=== PATIENT | female | born 1975 | race Caucasian/White ===

== ENCOUNTER 2017-10-29 15:05 | Emergency (ER) | payer SELFPAY ==
--- OUTSIDE RECORDS SUMMARY | 2017-10-29 15:09 | XMS REPORT | Continuity of Care Document ---
:1975 Author Organization [facility] Care Team Providers Name Role Phone MD Mely, Gerson Unavailable Unavailable Insurance Providers Payer name Policy type / Coverage Policy ID Covered republican ID Policy Olivia type [place] Encounters Encounter Performer Location Date Lab Report Gerson Boone MD [facility] Nov 15, 2013 Allergies, Adverse Reactions, Alerts Type Substance Reaction Status Drug allergy PENICILLIN rash Active Problems Problem Effective Dates Problem Status MIGRAINE HEADACHE Active MIGRAINE - UNSPECIFIED WITHOUT MENTION OF INTRACTABLE Sep 26, 2013 Active ROUTINE GENERAL MEDICAL EXAMINATION AT A [facility] Sep 26, 2013 Active FACILITY ELEVATED BLOOD PRESSURE READING WITHOUT DIAGNOSIS OF Sep 26, 2013 Active HYPERTENSION MENORRHAGIA Sep 26, 2013 Inactive WELL WOMAN EXAM Oct 31, 2013 Active GALACTORRHEA Oct 31, 2013 Active MENORRHAGIA Oct 31, 2013 Active Procedures Date Description Comments Sep 26, 2013 smoking status Never smoker August 04, 2012 vaginal Pap smear results Normal Oct 31, 2013 vaginal Pap smear results normal Oct 31, 2013 smoking status Never smoker Medications Medication Instructions Start Date Status TRINESSA (28) 0.18/0.215/0.25 MG-35 Inactive MCG TABS TOPAMAX 50 MG TABS twice a day Inactive BACTRIM DS 800-160 MG TABS 1 tab q12h with food. Sep 26, 2013 Active BACTROBAN 2 % OINT Apply to affected area Sep 26, 2013 Active (finger) BID MEDROXYPROGESTERONE ACETATE 10 MG 1 tablet daily Oct 31, 2013 Active TABS FLAGYL 500 MG TABS one by mouth BID x 7 days Nov 09, 2013 Active Vital Signs Date Description Test Result Sep 26, 2013 height E&M HEIGHT 65 in Sep 26, 2013 weight E&M WEIGHT 195 lb Sep 26, 2013 temperature E&M TEMPERATURE 98 deg f Sep 26, 2013 pulse rate E&M PULSE RATE 90 /min Sep 26, 2013 blood pressure, systolic BP SYSTOLIC 138 mm Hg Sep 26, 2013 blood pressure, diastolic BP DIASTOLIC 93 mm Hg Oct 31, 2013 weight E&M WEIGHT 191 lb Oct 31, 2013 blood pressure, systolic, sitting, left arm BP SYS SIT L 133 mm Hg Oct 31, 2013 blood pressure, diastolic, sitting, left arm BP VALERY SIT L 88 mm Hg Oct 31, 2013 blood pressure, systolic BP SYSTOLIC 133 mm Hg Oct 31, 2013 blood pressure, diastolic BP DIASTOLIC 88 mm Hg Oct 31, 2013 pulse rate, sitting, left PULSE SIT L 103 /min Oct 31, 2013 pulse rate E&M PULSE RATE 103 /min Nov 15, 2013 weight E&M WEIGHT 191 lb Nov 15, 2013 blood pressure, systolic, sitting, left arm BP SYS SIT L 141 mm Hg Nov 15, 2013 blood pressure, diastolic, sitting, left arm BP VALERY SIT L 88 mm Hg Nov 15, 2013 blood pressure, systolic BP SYSTOLIC 141 mm Hg Nov 15, 2013 blood pressure, diastolic BP DIASTOLIC 88 mm Hg Nov 15, 2013 pulse rate, sitting, left PULSE SIT L 105 /min Nov 15, 2013 pulse rate E&M PULSE RATE 105 /min Results Date Description Test Name Value Reference Interpretation Status Sep 26, hemoglobin, blood HGB 13.6 g/dL 12.0-16.0 2013Sep 26, hematocrit, blood HCT 42.3 % 36.0-48.0 2013Sep 26, platelet count PLATELETS 234 K/CMM [phone] /mm3 Sep 26, hemoglobin, blood HGB 13.6 g/dL 12.0-16.0 2013Sep 26, hematocrit, blood HCT 42.3 % 36.0-48.0 2013Sep 26, platelet count PLATELETS 234 K/CMM [phone] /mm3 Oct 31, hemoglobin, blood HGB 13.4 g/dL 12.0-16.0 2013Oct 31, hematocrit, blood HCT 39.6 % 36.0-48.0 2013Oct 31, platelet count PLATELETS 251 K/CMM [phone] /mm3 Sep 26, urine color UA COLOR Colorless Yellow 2013 null Sep 26, bacteria, urine BACTERIA URN Few null None Seen 2013 microscopy Sep 26, urine color UA COLOR Colorless Yellow 2013 null Sep 26, bacteria, urine BACTERIA URN Few null None Seen 2013 microscopy Sep 26, cholesterol, serum CHOLESTEROL 172 mg/dl <=199 2013Sep 26, triglyceride, TRIGLYCERIDE 123 mg/dl <=149 2013 serum, fasting Sep 26, HDL cholesterol, HDL 61 mg/dl >=61 2013 serum Rogelio 23, LDL cholesterol, LDL 86 mg/dl <=99 2013 serum Sep 26, sodium, serum SODIUM 140 MEQ/L [phone] mmol/L Sep 26, potassium, serum POTASSIUM 3.9 MEQ/L 3.5-5.1 2014 mmol/L Sep 26, creatinine, serum CREATININE 0.6 mg/dL 0.5-1.4 2013Sep 26, urea nitrogen, BUN 9 mg/dL 10-25 blood Sep 26, urea BUN/CREAT 15 null 6-25 2013 nitrogen/creatinine ratio, serum Sep 26, albumin, serum ALBUMIN 4.2 g/dL 3.5-5.0 2013Sep 26, calcium, serum CALCIUM 8.9 mg/dL 8.5-10.5 2013Sep 26, alanine SGPT (ALT) 27 U/L 0-65 2013 aminotransferase (SGPT), serum Sep 26, aspartate SGOT (AST) 27 U/L 0-37 2013 aminotransferase (SGOT), serum Sep 26, alkaline ALK PHOS 87 U/L 39-136 2013 phosphatase, serum Sep 26, thyroid stimulating TSH 1.110 uIU/mL 0.360-3.740 2014 hormone, serum Sep 26, cholesterol, serum CHOLESTEROL 172 mg/dl <=199 2013Sep 26, triglyceride, TRIGLYCERIDE 123 mg/dl <=149 2013 serum, fasting Sep 26, HDL cholesterol, HDL 61 mg/dl >=61 2013 serum Sep 26, LDL cholesterol, LDL 86 mg/dl <=99 2013 serum Sep 26, sodium, serum SODIUM 140 MEQ/L [phone] mmol/L Sep 26, potassium, serum POTASSIUM 3.9 MEQ/L 3.5-5.1 2013 mmol/L Sep 26, creatinine, serum CREATININE 0.6 mg/dL 0.5-1.4 2013Sep 26, urea nitrogen, BUN 9 mg/dL 10-25 blood Sep 26, urea BUN/CREAT 15 null 6-25 2013 nitrogen/creatinine ratio, serum Sep 26, albumin, serum ALBUMIN 4.2 g/dL 3.5-5.0 2013Sep 26, calcium, serum CALCIUM 8.9 mg/dL 8.5-10.5 2013Sep 26, alanine SGPT (ALT) 27 U/L 0-65 2013 aminotransferase (SGPT), serum Sep 26, aspartate SGOT (AST) 27 U/L 0-37 2013 aminotransferase (SGOT), serum Sep 26, alkaline ALK PHOS 87 U/L 39-136 2013 phosphatase, serum Sep 26, thyroid stimulating TSH 1.110 uIU/mL 0.360-3.740 2013 hormone, serum Oct 31, thyroid stimulating TSH 1.300 uIU/mL 0.360-3.740 2013 hormone, serum Oct 31, sodium, serum SODIUM 140 MEQ/L [phone] mmol/L Oct 31, potassium, serum POTASSIUM 3.7 MEQ/L 3.5-5.1 2013 mmol/L Oct 31, creatinine, serum CREATININE 0.8 mg/dL 0.5-1.4 2013Oct 31, urea nitrogen, BUN 12 mg/dL 7-2013 blood Oct 31, urea BUN/CREAT 15 null 6-2013 nitrogen/creatinine ratio, serum Oct 31, albumin, serum ALBUMIN 4.1 g/dL 3.5-5.0 2013Oct 31, calcium, serum CALCIUM 8.5 mg/dL 8.5-10.5 2013Oct 31, alanine SGPT (ALT) 29 U/L 0-65 2013 aminotransferase (SGPT), serum Oct 31, aspartate SGOT (AST) 29 U/L 0-37 2013 aminotransferase (SGOT), serum Oct 31, alkaline ALK PHOS 89 U/L 39-136 2013 phosphatase, serum Oct 31, follicle FSH 4700 miu/l Units 2014 stimulating converted. hormone, serum See lab report for original value. Oct 31, luteinizing LH 5.59 mIU/mL 2013 hormone, serum August 04, vaginal Pap smear PAP SMEAR Normal null 2012 results Oct 31, vaginal Pap smear PAP SMEAR normal null 2013 results
--- OUTSIDE RECORDS SUMMARY | 2017-10-29 15:09 | XMS REPORT | Continuity of Care Document ---
:1975 Author Organization Interface Problems Problem Status Onset Classification Date Comments Source Date Reported CANDIDIASIS, Inactive 11/07/19 Condition 11/14/2014 VAGINAL 15 [facility] Group DYSURIA Inactive 11/07/19 Condition 11/14/2014 15 Medical Group DYSPEPSIA AND Inactive 09/21/19 Condition 11/14/2014 OTHER SPECIFIED 15 Medical DISORDERS OF Group FUNCTION OF STOMACH CHANGE IN BOWEL Inactive 09/21/19 Condition 11/14/2014 HABITS 15 Medical Group 786.2 - COUGH Active 07/27/19 OPID 15 [place] COUGH DUE TO ADA Active 07/27/19 Condition 11/14/2014 INHIBITORS 15 [facility] Group GERD - REFLUX, Active 07/27/19 Condition 11/14/2014 ESOPHAGEAL 15 [facility] Group HYPERTENSION, Active 07/27/19 Condition 11/14/2014 BENIGN ESSENTIAL 15 Medical Group MORBID OBESITY Active 07/27/19 Condition 11/14/2014 15 [facility] Group ALLERGIC Inactive 07/27/19 Condition 11/14/2014 RHINITIS, CAUSE 15 Medical UNSPECIFIED Group CONTRACEPTIVE Inactive 07/12/19 Condition 11/14/2014 MANAGEMENT 15 Medical Group VAGINITIS Inactive 07/12/19 Condition 11/14/2014 15 Medical Group HEADACHE NOS Inactive 06/16/19 Condition 11/14/2014 15 [facility] Group NECK PAIN Active 06/16/19 Condition 11/14/2014 15 [facility] Group DRY SKIN Active 06/16/19 Condition 11/14/2014 15 [facility] Group ELEVATED BLOOD Inactive 06/16/19 Condition 11/14/2014 PRESSURE 15 Medical Group LYMPHADENITIS, Inactive 06/16/19 Condition 11/14/2014 ACUTE 15 Medical Group SPONDYLOSIS, Active 06/16/19 Condition 11/14/2014 CERVICAL 15 [facility] Group GALACTORRHEA Inactive 11/01/19 Condition 11/14/2014 14 [facility] Group MENORRHAGIA Active 11/01/19 Condition 11/14/2014 14 Medical Group Galactorrhea not Active 11/01/19 Problem 10/05/2014 2Data OPID associated with 14 migrated from [facility] childbirth<sup>2 [employer] [place] </sup> on 09/02/14. Menorrhagia<sup> Active 11/01/19 Problem 10/05/2014 3Data OPID 3</sup> 14 migrated from [facility] [employer] [place] on 09/02/14. MIGRAINE - Active 09/27/19 Condition 11/14/2014 UNSPECIFIED 14 Medical WITHOUT MENTION Group OF INTRACTABLE ROUTINE GENERAL Inactive 09/27/19 Condition 11/14/2014 MEDICAL 14 Medical EXAMINATION AT A [facility] CARE FACILITY ELEVATED BLOOD Inactive 09/27/19 Condition 11/14/2014 PRESSURE READING 14 Medical WITHOUT Group DIAGNOSIS OF HYPERTENSION MENORRHAGIA Inactive 09/27/19 Condition 11/14/2014 14 Medical Group Elevated Active 09/27/19 Problem 10/05/2014 1Data OPID blood-pressure 14 migrated from [facility] reading without [employer] [place] diagnosis of on 09/02/14. hypertension<sup >1</sup> MIGRAINE Inactive Condition 11/14/2014 HEADACHE Medical Group Migraine<sup>4</ Active Problem 10/05/2014 4Data OPID sup> migrated from [facility] [employer] [place] on 09/02/14. Medications Medication Details Route Status Patient Ordering Order Source Instructions Provider Date LIDOCAINE HCL 2 % GEL Apply in Active vaginal area 2014 Medical for burning Group when urinating MUPIROCIN 2 % OINT apply to Active 11/06/ vaginal area 2014 Medical for Group irritation FLUCONAZOLE 150 MG 1 tab QD Active 11/06/ TABS 2014 Medical Group VAGISIL 5-2 % CREA Apply Active vaginally q 2014 Medical HS. Group LIDOCAINE HCL 2 % GEL Apply in Active 11/06/ vaginal area 2014 Medical for burning Group when urinating FLUCONAZOLE 150 MG 1 tab QD Active 11/06/ TABS 2015 Medical Group MACRODANTIN 100 MG 1 cap q12h No CAPS with food. Longer 2014 Medical Active Group QSYMIA 3.75-23 MG 1 tab po No 10/13/ [id number] once daily Longer 2014 Medical x14 days Active Group FLUCONAZOLE 150 MG 1 tab QD for No TABS yeast Longer 2014 Medical infection Active Group FLUCONAZOLE 150 MG 1 tab QD for No TABS yeast Longer 2014 Medical infection Active Group LOSARTAN POTASSIUM 1 tab QD for Active 100 MG TABS blood 2015 Medical pressure. Group OMEPRAZOLE 40 MG CPDR 1 tab QD for Active reflux. 2015 Medical Group HYDROCHLOROTHIAZIDE 1 tab q AM No 25 MG TABS Longer 2014 Medical Active Group QSYMIA 7.5-46 MG 1 cap qAM No [id number] for appetite Longer 2014 Medical suppresion. Active Group LOSARTAN POTASSIUM 1 tab QD for Active 100 MG TABS blood 2015 Medical pressure. Group HYDROCHLOROTHIAZIDE 1 tab q AM Active 25 MG TABS 2014 Medical Group NEXIUM 40 MG CPDR 1 capsule No daily Longer 2014 Medical Active Group GAVISCON EXTRA as No STRENGTH CHEW instructed Longer 2014 Medical Active Group BROMFED DM 30-2-10 1 tsp QID No MG/5ML SYRP prn cough Longer 2014 Medical Active Group NEXIUM 40 MG CPDR 1 capsule No daily Longer 2014 Medical Active Group NEXIUM 40 MG CPDR 1 capsule No daily Longer 2014 Medical Active Group LOSARTAN POTASSIUM 50 1 tablet No MG TABS daily Longer 2014 Medical Active Group LOSARTAN POTASSIUM 50 1 tablet No MG TABS daily Longer 2014 Medical Active Group HYDROCHLOROTHIAZIDE 1/2 po q am Active 25 MG TABS 2014 Medical Group LISINOPRIL 10 MG TABS 1 tablet No daily Longer 2014 Medical Active Group HYDROCHLOROTHIAZIDE 1/2 po q am Active 25 MG TABS 2014 Medical Group LISINOPRIL 10 MG TABS 1 tablet No daily Longer 2014 Medical Active Group LISINOPRIL 10 MG TABS 1 tablet No daily Longer 2014 Medical Active Group LISINOPRIL 10 MG TABS 1 tablet No daily Longer 2014 Medical Active Group DIFLUCAN TAB 150MG 1 po q 3 No days x 2 Longer 2014 Medical Active Group LISINOPRIL 10 MG TABS 1 tablet No daily Longer 2014 Medical Active Group LISINOPRIL 10 MG TABS 1 tablet No daily Longer 2014 Medical Active Group LISINOPRIL 10 MG TABS 1 tablet No daily Longer 2014 Medical Active Group LISINOPRIL 10 MG TABS 1 tablet No daily Longer 2014 Medical Active Group MEDROL (NICOLLE) 4 MG Take as No TABS directed Longer 2014 Medical Active Group ZOFRAN 8 MG TABS 1 po q d - No bid prn Longer 2014 Medical nausea Active Group ZYRTEC ALLERGY 10 MG 1 capsule No CAPS daily as Longer 2014 Medical needed for Active Group allergies DICLOFENAC SODIUM 75 1 tablet No MG TBEC twice daily Longer 2014 Medical as needed Active Group for pain ADIPEX-P 37.5 MG CAPS 1 po qd No Longer 2014 Medical Active Group HYDROCHLOROTHIAZIDE 1 half No 25 MG TABS tablet daily Longer 2014 Medical Active Group MEDROL (NICOLLE) 4 MG Take as No TABS directed Longer 2014 Medical Active Group DICLOFENAC SODIUM 75 1 tablet No MG TBEC twice daily Longer 2014 Medical as needed Active Group for pain HYDROCHLOROTHIAZIDE 1 half No 25 MG TABS tablet daily Longer 2014 Medical Active Group LOESTRIN FE 04/25 1-20 1 po q day x Active MG-MCG TABS 21 days, 2013 Medical skip Group placebos as directed. FLAGYL 500 MG TABS one by mouth No BID x 7 days Longer 2013 Medical Active Group MEGACE 20 MG TABS 1 tablet No (MEGESTROL ACETATE) twice daily Longer 2013 Medical Active Group MEDROXYPROGESTERONE 1 tablet Active ACETATE 10 MG TABS daily 2013 Medical Group TRINESSA (28) No 0.18/0.215/0.25 MG-35 Longer 2013 Medical MCG TABS Active Group TOPAMAX 50 MG TABS twice a day No Longer 2013 Medical Active Group BACTRIM DS 800-160 MG 1 tab q12h No TABS with food. Longer 2013 Medical Active Group BACTROBAN 2 % OINT Apply to No affected Longer 2013 Medical area Active Group (finger) BID Allergies, Adverse Reactions, Alerts Substance Category Reaction Severity Reaction Status Date Comments Source type Reported LISINOPRIL Drug LISINOPRIL allergy 5 Medical Group PENICILLIN Drug PENICILLIN allergy Medical Group Immunizations Immunization Date Given Site Status Last Updated Comments Source Results Order Name Results Value Reference Date Interpretation Comments Source Range Upper GI w Upper GI w UGI WITH AIR CONTRAST AND SMALL BOWEL SERIES, 10/02 - MH OPID small bowel small bowel /2014 - [place] series DX series DX [place] HISTORY: Chronic cough. Evaluate for GERD. Read by: Raymundo Salgado MD Dictated Date/time: 10/02/14 12:08 Electronically Signed by: Raymundo Salgado MD 10/02/14 12:18 FINAL REPORT FLUOROSCOPIC TIME: 1.5 minutes. TECHNIQUE: Upper GI with air contrast was performed using barium and citrocarbonate granules. Additional barium was given for small bowel series. Transit time to colon: 60 minutes. FINDINGS: Call Center Specialist film demonstrates no abnormality. The swallowing mechanism is normal. No evidence of hiatal hernia or reflux. Normal esophageal motility and mucosa. The air contrast views of the stomach demonstrate multiple superficial erosions in the gastric antrum compatible with antral gastritis. The duodenal bulb and duodenal sweep have a normal appearance. The barium column was followed to the cecum which took 60 minutes. No intrinsic or extrinsic abnormality of small bowel. The terminal ileum looks normal. CONCLUSION: Antral gastritis. No evidence of hiatal hernia or gastroesophageal reflux. Normal small bowel series. Chemistry CHOLESTEROL 180 mg/dl - 199 09/20 Medical Group Chemistry TRIGLYCERIDE 102 mg/dl - 149 09/20 Medical Group Chemistry HDL 58 mg/dl >=61 09/20 Medical Group Chemistry LDL 102 mg/dl - 99 09/20 Medical Group Chemistry SODIUM 142 MEQ/L 135 - 145 09/20 mmol/L Medical Group Chemistry POTASSIUM 4.4 MEQ/L 3.5 - 5.1 09/20 mmol/L Medical Group Chemistry CREATININE 0.6 mg/dL 0.5 - 1.4 09/20 Medical Group Chemistry BUN 13 mg/dL 7 - 22 09/20 Medical Group Chemistry BUN/CREAT 22 6 - 25 09/20 Medical Group Chemistry ALBUMIN 3.5 g/dL 3.5 - 5.0 09/20 Medical Group Chemistry CALCIUM 8.5 mg/dL 8.5 - 10.5 09/20 Medical Group Chemistry SGPT (ALT) 25 U/L 0 - 65 09/20 Medical Group Chemistry SGOT (AST) 19 U/L 0 - 37 09/20 Medical Group Chemistry ALK PHOS 77 U/L 39 - 136 09/20 Medical Group Hematology HGB 13.8 g/dL 12.0 - 09/20 MH 16.0 Medical Group Hematology HCT 42.7 % 36.0 - 09/20 MH 48.0 /2014 Medical Group Hematology PLATELETS 256 K/CMM 133 - 450 09/20 /mm3 Medical Group Serology HELICOB IGG <0.4 U/mL 09/20 Medical Group Urinalysis UA COLOR Yellow 09/20 Medical Group Urinalysis BACTERIA URN Few 09/20 Medical Group Chest 2 Chest 2 views EXAM: Chest 2 views 07/26 OPID views DX - [facility] HISTORY: 786.2 [place] COMPARISON: None Read by: Stevo Todd MD Dictated Date/time: 07/26/14 16:13 Electronically Signed by: Stevo Todd MD 07/26/14 16:14 FINAL REPORT The heart size is normal and the lungs are clear. There is no pleural effusion or pneumothorax. No gross skeletal abnormality. IMPRESSION: No acute abnormality. Chemistry TSH 1.300 0.360 - 10/31 MH uIU/mL 3.74 Medical Group Chemistry SODIUM 140 MEQ/L 135 - 145 10/31 MH mmol/L Medical Group Chemistry POTASSIUM 3.7 MEQ/L 3.5 - 5.1 10/31 MH mmol/L Medical Group Chemistry CREATININE 0.8 mg/dL 0.5 - 1.4 10/31 Medical Group Chemistry BUN 12 mg/dL 10/31 Medical Group Chemistry TSH 1.300 0.360 - 10/31 MH uIU/mL 3.740 Medical Group Chemistry SODIUM 140 MEQ/L 135 - 145 10/31 MH mmol/L Medical Group Chemistry POTASSIUM 3.7 MEQ/L 3.5 - 5.1 10/31 MH mmol/L Medical Group Chemistry CREATININE 0.8 mg/dL 0.5 - 1.4 10/31 Medical Group Chemistry BUN 12 mg/dL 7 - 10/31 Medical Group Chemistry BUN/CREAT 15 6 - 25 10/31 Medical Group Chemistry ALBUMIN 4.1 g/dL 3.5 - 5.0 10/31 Medical Group Chemistry CALCIUM 8.5 mg/dL 8.5 - 10.5 10/31 Medical Group Chemistry SGPT (ALT) 29 U/L 0 - 65 10/31 Medical Group Chemistry SGOT (AST) 29 U/L 0 - 37 10/31 Medical Group Chemistry ALK PHOS 89 U/L 39 - 136 10/31 Medical Group Chemistry FSH 4700 miu/l 10/31 Medical Group Chemistry LH 5.59 10/31 mIU/mL Medical Group Hematology HGB 13.4 g/dL 12.0 - 10/31 16.0 Medical Group Hematology HCT 39.6 % 36.0 - 10/31 48.0 Medical Group Hematology PLATELETS 251 K/CMM 133 - 450 10/31 Medical Group Boat Carpenter Mechanic PAP SMEAR normal 10/31 Medical Group [employer]ic PAP SMEAR normal 10/31 Medical Group Pathology PAP SMEAR normal 10/31 Medical Group Chemistry CHOLESTEROL 172 mg/dl - 199 09/26 Medical Group Chemistry TRIGLYCERIDE 123 mg/dl - 149 09/26 Medical Group Chemistry HDL 61 mg/dl >=61 09/26 Medical Group Chemistry LDL 86 mg/dl - 99 09/26 Medical Group Chemistry SODIUM 140 MEQ/L 135 - 145 09/26 mmol/L Medical Group Chemistry CHOLESTEROL 172 mg/dl - 199 09/26 Medical Group Chemistry TRIGLYCERIDE 123 mg/dl - 149 09/26 Medical Group Chemistry HDL 61 mg/dl >=61 09/26 Medical Group Chemistry LDL 86 mg/dl - 99 09/26 Medical Group Chemistry SODIUM 140 MEQ/L 135 - 145 09/26 mmol/L Medical Group Chemistry POTASSIUM 3.9 MEQ/L 3.5 - 5.1 09/26 mmol/L Medical Group Chemistry CREATININE 0.6 mg/dL 0.5 - 1.4 09/26 Medical Group Chemistry BUN 9 mg/dL - 09/26 Medical Group Chemistry BUN/CREAT 15 6 - 25 09/26 Medical Group Chemistry ALBUMIN 4.2 g/dL 3.5 - 5.0 09/26 Medical Group Chemistry CALCIUM 8.9 mg/dL 8.5 - 10.5 09/26 Medical Group Chemistry SGPT (ALT) 27 U/L 0 - 65 09/26 Medical Group Chemistry SGOT (AST) 27 U/L 0 - 37 09/26 Medical Group Chemistry ALK PHOS 87 U/L 39 - 136 09/26 Medical Group Chemistry TSH 1.110 0.360 - 09/26 uIU/mL 3.74 Medical Group Chemistry CHOLESTEROL 172 mg/dl - 199 09/26 Medical Group Chemistry TRIGLYCERIDE 123 mg/dl - 149 09/26 Medical Group Chemistry HDL 61 mg/dl >=61 09/26 Medical Group Chemistry LDL 86 mg/dl - 99 09/26 Medical Group Chemistry SODIUM 140 MEQ/L 135 - 145 09/26 mmolL Medical Group Chemistry POTASSIUM 3.9 MEQ/L 3.5 - 5.1 09/26 mmolL Medical Group Chemistry CREATININE 0.6 mg/dL 0.5 - 1.4 09/26 Medical Group Chemistry BUN 9 mg/dL 7 - 09/26 Medical Group Chemistry BUN/CREAT 15 6 - 25 09/26 Medical Group Chemistry ALBUMIN 4.2 g/dL 3.5 - 5.0 09/26 Medical Group Chemistry CALCIUM 8.9 mg/dL 8.5 - 10.5 09/26 Medical Group Chemistry SGPT (ALT) 27 U/L 0 - 65 09/26 Medical Group Chemistry SGOT (AST) 27 U/L 0 - 37 09/26 Medical Group Chemistry ALK PHOS 87 U/L 39 - 136 09/26 Medical Group Chemistry TSH 1.110 0.360 - 09/26 uIU/mL 3.740 Medical Group Hematology HGB 13.6 g/dL 12.0 - 09/26 16.0 Medical Group Hematology HCT 42.3 % 36.0 - 09/26 48.0 Medical Group Hematology PLATELETS 234 K/CMM 133 - 450 09/26 MH /mm3 /2014 Medical Group Hematology HGB 13.6 g/dL 12.0 - 09/26 MH 16.0 Medical Group Hematology HCT 42.3 % 36.0 - 09/26 MH 48.0 /2013 Medical Group Hematology PLATELETS 234 K/CMM 133 - 450 09/26 MH /mm3 /2014 Medical Group Urinalysis UA COLOR Colorless 09/26 Medical Group Urinalysis BACTERIA URN Few 09/26 Medical Group Urinalysis UA COLOR Colorless 09/26 Medical Group Urinalysis UA COLOR Colorless 09/26 Medical Group Urinalysis BACTERIA URN Few 09/26 Medical Group Urinalysis UA COLOR Colorless 09/26 Medical Group Urinalysis BACTERIA URN Few 09/26 Medical Group [employer] PAP SMEAR Normal 08/04 Medical Group [employer] PAP SMEAR Normal 08/04 Medical Group Pathology PAP SMEAR Normal 08/04 Medical Group Vital Signs Vital Sign Value Date Comments Source Weight 206 11/14/2014 Medical Group Systolic (mm Hg) 119 11/14/2014 Medical Group Diastolic (mm Hg) 79 11/14/2014 Medical Group Heart Rate 106 11/14/2014 Medical Group Weight 202 11/06/2014 Medical Group Temperature Oral (F) 98.5 F 11/06/2014 Medical Group Heart Rate 97 11/06/2014 Medical Group Systolic (mm Hg) 120 11/06/2014 Medical Group Diastolic (mm Hg) 80 11/06/2014 Medical Group Weight 207 09/20/2014 Medical Group Height 66 09/20/2014 Medical Group Temperature Oral (F) 98.4 F 09/20/2014 Medical Group Heart Rate 89 09/20/2014 Medical Group Systolic (mm Hg) 154 09/20/2014 Medical Group Diastolic (mm Hg) 94 09/20/2014 Medical Group Weight 203 07/26/2014 Medical Group Heart Rate 102 07/26/2014 Medical Group Systolic (mm Hg) 129 07/26/2014 Medical Group Diastolic (mm Hg) 85 07/26/2014 Medical Group Weight 199 07/11/2014 Medical Group Systolic (mm Hg) 149 07/11/2014 Medical Group Diastolic (mm Hg) 97 07/11/2014 Medical Group Heart Rate 101 07/11/2014 Medical Group Weight 199 06/15/2014 Medical Group Heart Rate 103 06/15/2014 Medical Group Temperature Oral (F) 99.8 F 06/15/2014 Medical Group Systolic (mm Hg) 145 06/15/2014 Medical Group Diastolic (mm Hg) 89 06/15/2014 Medical Group Respitory Rate 15 06/15/2014 Medical Group Weight 192 12/27/2013 Medical Group Systolic (mm Hg) 132 12/27/2013 Medical Group Diastolic (mm Hg) 95 12/27/2013 Medical Group Heart Rate 109 12/27/2013 Medical Group Weight 188 11/29/2013 Medical Group Systolic (mm Hg) 138 11/29/2013 Medical Group Diastolic (mm Hg) 96 11/29/2013 Medical Group Heart Rate 105 11/29/2013 Medical Group Weight 191 11/15/2013 Medical Group Systolic (mm Hg) 141 11/15/2013 Medical Group Diastolic (mm Hg) 88 11/15/2013 Medical Group Heart Rate 105 11/15/2013 Medical Group Weight 191 10/31/2013 Medical Group Systolic (mm Hg) 133 10/31/2013 Medical Group Diastolic (mm Hg) 88 10/31/2013 Medical Group Heart Rate 103 10/31/2013 Medical Group Height 65 09/26/2013 Medical Group Weight 195 09/26/2013 Medical Group Temperature Oral (F) 98 F 09/26/2013 Medical Group Heart Rate 90 09/26/2013 Medical Group Systolic (mm Hg) 138 09/26/2013 Medical Group Diastolic (mm Hg) 93 09/26/2013 Medical Group Encounters Location Location Encounter Encounter Reason Attending ADM DC Status Source Details Type Number For Provider Date Date Visit [facility] Report [id number] Liz 10/31 10/31 [place] [facility] [address], /2013 Medical [facility] [facility] [employer] [facility] [id number] Liz 11/15 11/15 [place] [facility] Visit [address], Medical Keely Ji MD Group [address] [facility] Report [id number] Liz 11/15 11/15 [place] [facility] [address], Medical [facility] [employer] [facility] [employer] [facility] [id number] Liz 11/29 11/29 [place] [facility] Visit [address], /2013 Medical Keely Ji MD Group [address] [facility] Office [id number] Liz 12/27 12/27 [place] Visit [address], /2013 Medical Keely Ji MD Group [address] [facility] Office [id number] Edward 06/15 06/15 [facility] [place] Visit [address], [place] /2014 Medical Medical Group [facility] Office [id number] Liz 07/11 07/11 [place] Visit [address], /2014 Medical Keely Tejada [address] [facility] Office [id number] Edward 07/26 07/26 [place] Visit [address], [place] /2014 Medical Medical Group [facility] Outpt Diag [id number] Edward 07/26 07/27 [facility] Outpatient Services [place] /2014 [facility] Office [id number] Liz 09/20 09/20 [facility] [place] Visit [address], /2014 Medical Medical [facility] Office [id number] Liz 09/21 09/21 MH [place] Visit [address], /2014 Medical Medical [facility] Outpt Diag [id number] Edward 10/02 10/03 [facility] Outpatient Services Colon /2014 [facility] Office [id number] Edward 11/06 11/06 [place] Visit [address], [place] /2014 Medical Medical Group [facility] Outpatient [id number] EDWARD 11/06 [facility] COLON /2014 [facility] Lab Report [id number] Edward 11/07 11/07 [place] [address], [place] /2014 Medical Medical Group [facility] Office [id number] Edward 11/07 11/07 [place] Visit [address], [place] /2014 Medical Medical Group [facility] Office [id number] Liz 11/14 11/14 [place] [facility] Visit [address], /2014 Medical Keely Ji MD [facility] [address] [facility] Report [id number] Liz 11/14 11/14 [place] [facility] [address] [facility], /2014 /2014 Medical [facility] [employer] [facility] [employer] Outpatient [id number] LIZ 11/14 [facility] [place] Outpatient [id number] [place] 05/04 [facility] [place] Outpatient [id number] LIZ 11/26 [facility] [place] Outpatient [id number] LIZ 05/27 [facility] [place] Procedures Procedure Code Date Perfomer Comments Source vaginal Pap smear [id number] 10/31/2013 normal Medical results Group vaginal Pap smear 86222 08/04/2012 Normal Medical results Group
--- OUTSIDE RECORDS SUMMARY | 2017-10-29 15:09 | XMS REPORT | Continuity of Care Document ---
:1975 Author Organization [facility] Care Team Providers Name Role Phone MD Mely, Gerson Unavailable Unavailable Insurance Providers Payer name Policy type / Coverage Policy ID Covered alliance party ID Policy Olivia type [place] Encounters Encounter Performer Location Date Lab Report Gerson Boone MD [facility] [place] [facility]-Div[facility] Order Technician Oct 31, 2013 Allergies, Adverse Reactions, Alerts Type Substance Reaction Status Drug allergy PENICILLIN rash Active Problems Problem Effective Dates Problem Status MIGRAINE HEADACHE Active MIGRAINE - UNSPECIFIED WITHOUT MENTION OF INTRACTABLE Sep 26, 2013 Active ROUTINE GENERAL MEDICAL EXAMINATION AT [facility] Sep 26, 2013 Active FACILITY ELEVATED BLOOD [...] tablet daily Oct 31, 2013 Active TABS Vital Signs Date Description Test Result Sep [...] pulse rate E&M PULSE RATE 103 /min Results Date Description Test Name Value Reference Interpretation Status Sep 26, hemoglobin, blood HGB 13.6 g/dL 12.0-16.0 2013Sep 26, hematocrit, blood HCT 42.3 % 36.0-48.0 2013Sep 26, platelet count PLATELETS 234 K/CMM 705-666 2970 /mm3 Sep 26, hemoglobin, blood HGB 13.6 g/dL 12.0-16.0 2013Sep 26, hematocrit, blood HCT 42.3 % 36.0-48.0 2013Sep 26, platelet count PLATELETS 234 K/CMM 570-214 4846 /mm3 Oct 31, hemoglobin, blood HGB 13.4 g/dL 12.0-16.0 2013Oct 31, hematocrit, blood HCT 39.6 % 36.0-48.0 2013Oct 31, platelet count PLATELETS 251 K/CMM 975-216 1299 /mm3 Sep 26, urine color UA COLOR [...] Sep 26, sodium, serum SODIUM 140 MEQ/L 256-285 7060 mmol/L Sep 26, potassium, serum POTASSIUM 3.9 MEQ/L 3.5-5.1 2013 mmol/L Sep 26, creatinine, serum CREATININE 0.6 mg/dL 0.5-1.4 2013Sep 26, urea nitrogen, BUN 9 mg/dL 7-22 2013 blood Sep 26, urea BUN/CREAT 15 null [...] TSH 1.110 uIU/mL 0.360-3.740 2013 hormone, serum Sep 26, cholesterol, serum CHOLESTEROL 172 mg/dl <=199 2013Sep 26, triglyceride, TRIGLYCERIDE 123 mg/dl <=149 2013 serum, fasting Sep 26, HDL cholesterol, HDL 61 mg/dl >=61 2013 serum Sep 26, LDL cholesterol, LDL 86 mg/dl <=99 2013 serum Sep 26, sodium, serum SODIUM 140 MEQ/L 191-747 2565 mmol/L Sep 26, potassium, serum POTASSIUM 3.9 MEQ/L 3.5-5.1 2013 mmol/L Sep 26, creatinine, serum CREATININE 0.6 mg/dL 0.5-1.4 2013Sep 26, urea nitrogen, BUN 9 mg/dL 7-2013 blood Sep 26, urea BUN/CREAT 15 null [...] Oct 31, sodium, serum SODIUM 140 MEQ/L 756-674 4172 mmol/L Oct 31, potassium, serum POTASSIUM 3.7 MEQ/L 3.5-5.1 2013 mmol/L Oct 31, creatinine, serum CREATININE 0.8 mg/dL 0.5-1.4 2013Oct 31, urea nitrogen, BUN 12 mg/dL 7-22 2013 blood Oct 31, urea BUN/CREAT 15 null [...] Oct 31, follicle FSH 4700 miu/l Units 2013 stimulating converted. hormone, serum See lab report for original value. Oct 31, luteinizing LH 5.59 mIU/mL 2013 hormone, serum August 04, vaginal Pap smear PAP SMEAR Normal null 2012 results Oct 31, vaginal Pap smear PAP SMEAR normal null 2013 results
--- OUTSIDE RECORDS SUMMARY | 2017-10-29 15:09 | XMS REPORT | Continuity of Care Document ---
:1975 Author Organization [facility] Care Team Providers Name Role Phone MD Mely, Gerson Unavailable Unavailable Insurance Providers Payer name Policy type / Coverage Policy ID Covered republican ID Policy Olivia type [place] Encounters Encounter Performer Location Date Office Visit Gerson Boone MD [facility] Medical [place] [address] Allergies, Adverse Reactions, Alerts Type Substance Reaction Status Drug allergy PENICILLIN rash Active Problems Problem Effective Dates Problem Status MIGRAINE HEADACHE Active MIGRAINE - UNSPECIFIED WITHOUT MENTION OF INTRACTABLE Sep 26, 2013 Active ROUTINE GENERAL MEDICAL EXAMINATION AT A [facility] Sep 26, 2013 Active FACILITY ELEVATED BLOOD [...] 2013Sep 26, platelet count PLATELETS 234 K/CMM [phone] /mm3 Sep 26, hemoglobin, blood HGB 13.6 g/dL 12.0-16.0 2013Sep 26, hematocrit, blood HCT 42.3 % 36.0-48.0 2013Sep 26, platelet count PLATELETS 234 K/CMM 454-483 5151 /mm3 Oct 31, hemoglobin, blood HGB 13.4 g/dL 12.0-16.0 2013Oct 31, hematocrit, blood HCT 39.6 % 36.0-48.0 2013Oct 31, platelet count PLATELETS 251 K/CMM 488-311 8931 /mm3 Sep 26, urine color UA COLOR [...] Sep 26, sodium, serum SODIUM 140 MEQ/L 572-240 2730 mmol/L Sep 26, potassium, serum POTASSIUM 3.9 [...] Sep 26, sodium, serum SODIUM 140 MEQ/L 178-752 8860 mmol/L Sep 26, potassium, serum POTASSIUM 3.9 [...] Oct 31, sodium, serum SODIUM 140 MEQ/L 826-625 6431 mmol/L Oct 31, potassium, serum POTASSIUM 3.7 MEQ/L 3.5-5.1 2013 mmol/L Oct 31, creatinine, serum CREATININE 0.8 mg/dL 0.5-1.4 2013Oct 31, urea nitrogen, BUN 12 mg/dL 7-2013 blood Oct 31, urea BUN/CREAT 15 null 09-28 nitrogen/creatinine ratio, serum Oct 31, albumin, serum [...]
--- OUTSIDE RECORDS SUMMARY | 2017-10-29 15:10 | XMS REPORT | Continuity of Care Document ---
:1975 Author Organization [facility] Care Team Providers Name Role Phone MD Mely, Gerson Unavailable Unavailable Insurance Providers Payer name Policy type / Coverage Policy ID Covered alliance party ID Policy Olivia type [place] Encounters Encounter Performer Location Date Office Visit Gerson Boone MD [facility] Medical [place] [address] Allergies, Adverse Reactions, Alerts Type Substance Reaction Status Drug allergy PENICILLIN rash Active Problems Problem Effective Dates Problem Status MIGRAINE HEADACHE Active MIGRAINE - UNSPECIFIED WITHOUT MENTION OF INTRACTABLE Sep 26, 2013 Active ROUTINE GENERAL MEDICAL EXAMINATION AT A [facility] Sep 26, 2013 Active FACILITY ELEVATED BLOOD [...] Oct 31, 2013 smoking status Never smoker Nov 29, 2013 smoking status Never smoker Medications Medication Instructions Start Date Status TRINESSA (28) 0.18/0.215/0.25 Inactive MG-35 MCG TABS TOPAMAX 50 MG TABS twice a day Inactive BACTRIM DS 800-160 MG TABS 1 tab q12h with food. Sep 26, 2013 Active BACTROBAN 2 % OINT Apply to affected area (finger) Sep 26, 2013 Active BID FLAGYL 500 MG TABS one by mouth BID x 7 days Nov 09, 2013 Active MEGACE 20 MG TABS (MEGESTROL 1 tablet twice daily Oct 31, 2013 Active ACETATE) Vital Signs Date Description Test Result Sep [...] pulse rate E&M PULSE RATE 105 /min Nov 29, 2013 weight E&M WEIGHT 188 lb Nov 29, 2013 blood pressure, systolic, sitting, left arm BP SYS SIT L 138 mm Hg Nov 29, 2013 blood pressure, diastolic, sitting, left arm BP VALERY SIT L 96 mm Hg Nov 29, 2013 blood pressure, systolic BP SYSTOLIC 138 mm Hg Nov 29, 2013 blood pressure, diastolic BP DIASTOLIC 96 mm Hg Nov 29, 2013 pulse rate, sitting, left PULSE SIT L 105 /min Nov 29, 2013 pulse rate E&M PULSE RATE 105 /min Results Date Description Test Name Value Reference Interpretation Status Sep 26, hemoglobin, blood HGB 13.6 g/dL 12.0-16.0 2013Sep 26, hematocrit, blood HCT 42.3 % 36.0-48.0 2013Sep 26, platelet count PLATELETS 234 K/CMM 350-626 1259 /mm3 Sep 26, hemoglobin, blood HGB 13.6 g/dL 12.0-16.0 2013Sep 26, hematocrit, blood HCT 42.3 % 36.0-48.0 2013Sep 26, platelet count PLATELETS 234 K/CMM 244-367 2887 /mm3 Oct 31, hemoglobin, blood HGB 13.4 g/dL 12.0-16.0 2013Oct 31, hematocrit, blood HCT 39.6 % 36.0-48.0 2013Oct 31, platelet count PLATELETS 251 K/CMM 209-072 7803 /mm3 Sep 26, urine color UA COLOR Colorless Yellow 2014 null Sep 26, bacteria, urine BACTERIA URN Few null None Seen 2013 microscopy Sep 26, urine color UA COLOR Colorless Yellow 2014 null Sep 26, bacteria, urine BACTERIA URN Few null None Seen 2013 microscopy Sep 26, cholesterol, serum CHOLESTEROL 172 mg/dl <=199 2013Sep 26, triglyceride, TRIGLYCERIDE 123 mg/dl <=149 2013 serum, fasting Sep 26, HDL cholesterol, HDL 61 mg/dl >=61 2013 serum Sep 26, LDL cholesterol, LDL 86 mg/dl <=99 2013 serum Sep 26, sodium, serum SODIUM 140 MEQ/L 928-307 5577 mmol/L Sep 26, potassium, serum POTASSIUM 3.9 MEQ/L 3.5-5.1 2013 mmol/L Sep 26, creatinine, serum CREATININE 0.6 mg/dL 0.5-1.4 2013Sep 26, urea nitrogen, BUN 9 mg/dL 10-25 blood Sep 26, urea BUN/CREAT 15 null 09-28 nitrogen/creatinine ratio, serum Sep 26, albumin, serum ALBUMIN 4.2 g/dL 3.5-5.0 2013Sep 26, calcium, serum CALCIUM 8.9 mg/dL 8.5-10.5 2013Sep 26, alanine SGPT (ALT) 27 U/L 0-65 2014 aminotransferase (SGPT), serum Sep 26, aspartate SGOT (AST) 27 U/L 0-37 2013 aminotransferase (SGOT), serum Sep 26, alkaline ALK PHOS 87 U/L 39-136 2013 phosphatase, serum Sep 26, thyroid stimulating TSH 1.110 uIU/mL 0.360-3.740 2014 hormone, serum Sep 26, cholesterol, serum CHOLESTEROL 172 mg/dl <=199 2013Sep 26, triglyceride, TRIGLYCERIDE 123 mg/dl <=149 2013 serum, fasting Sep 26, HDL cholesterol, HDL 61 mg/dl >=61 2014 serum Sep 26, LDL cholesterol, LDL 86 mg/dl <=99 2013 serum Sep 26, sodium, serum SODIUM 140 MEQ/L 557-409 1373 mmol/L Sep 26, potassium, serum POTASSIUM 3.9 MEQ/L 3.5-5.1 2013 mmol/L Sep 26, creatinine, serum CREATININE 0.6 mg/dL 0.5-1.4 2013Sep 26, urea nitrogen, BUN 9 mg/dL 10-25 blood Sep 26, urea BUN/CREAT 15 null 6-2013 nitrogen/creatinine ratio, serum Sep 26, albumin, serum [...] Oct 31, sodium, serum SODIUM 140 MEQ/L 032-679 8184 mmol/L Oct 31, potassium, serum POTASSIUM 3.7 MEQ/L 3.5-5.1 2013 mmol/L Oct 31, creatinine, serum CREATININE 0.8 mg/dL 0.5-1.4 2013Oct 31, urea nitrogen, BUN 12 mg/dL 10-25 blood Oct 31, urea BUN/CREAT 15 null [...]
--- OUTSIDE RECORDS SUMMARY | 2017-10-29 15:10 | XMS REPORT | Continuity of Care Document ---
:1975 Author Organization [facility] Care Team Providers Name Role Phone RONALD Rosado, Felix Unavailable Unavailable Insurance Providers Payer name Policy type / Coverage Policy ID Covered libertarian ID Policy Olivia type [place] Encounters Encounter Performer Location Date Office Visit RONALD Mitchell [facility] Nov 06, 2014 Center Allergies, Adverse Reactions, Alerts Type Substance Reaction Status Drug allergy PENICILLIN rash Active Drug allergy LISINOPRIL cough Active Problems Problem Effective Dates Problem Status MIGRAINE HEADACHE Inactive MIGRAINE - UNSPECIFIED WITHOUT MENTION OF INTRACTABLE Sep 26, 2013 Active ROUTINE GENERAL MEDICAL EXAMINATION AT [facility] Sep 26, 2013 Inactive FACILITY ELEVATED BLOOD PRESSURE READING WITHOUT DIAGNOSIS OF Sep 26, 2013 Inactive HYPERTENSION MENORRHAGIA Sep 26, 2013 Inactive WELL WOMAN EXAM Oct 31, 2013 Active GALACTORRHEA Oct 31, 2013 Active MENORRHAGIA Oct 31, 2013 Active HEADACHE NOS Jun 15, 2014 Inactive NECK PAIN Jun 15, 2014 Active DRY SKIN Jun 15, 2014 Active ELEVATED BLOOD PRESSURE Jun 15, 2014 Inactive LYMPHADENITIS, ACUTE Jun 15, 2014 Active SPONDYLOSIS, CERVICAL Jun 15, 2014 Active CONTRACEPTIVE MANAGEMENT Jul 11, 2014 Active VAGINITIS Jul 11, 2014 Active COUGH DUE TO ADA INHIBITORS Jul 26, 2014 Active GERD - REFLUX, ESOPHAGEAL Jul 26, 2014 Active HYPERTENSION, BENIGN ESSENTIAL Jul 26, 2014 Active MORBID OBESITY Jul 26, 2014 Active ALLERGIC RHINITIS, CAUSE UNSPECIFIED Jul 26, 2014 Active ROUTINE GENERAL MEDICAL EXAMINATION AT A [facility] Sep 20, 2014 Active FACILITY DYSPEPSIA AND OTHER SPECIFIED DISORDERS OF FUNCTION OF Sep 20, 2014 Active STOMACH CHANGE IN BOWEL HABITS Sep 20, 2014 Active CANDIDIASIS, VAGINAL Nov 06, 2014 Active DYSURIA Nov 06, 2014 Active Procedures Date Description Comments Sep 26, 2013 smoking status Never smoker August 04, 2012 vaginal Pap smear results Normal Oct 31, 2013 vaginal Pap smear results normal Oct 31, 2013 smoking status Never smoker Nov 29, 2013 smoking status Never smoker Jun 15, 2014 smoking status Never smoker Jul 26, 2014 smoking status Never smoker Sep 20, 2014 smoking status Never smoker Nov 06, 2014 smoking status Never smoker Medications Medication Instructions Start Date Status TRINESSA (28) 0.18/0.215/0.25 MG-35 Inactive MCG TABS TOPAMAX 50 MG TABS twice a day Inactive MEGACE 20 MG TABS (MEGESTROL 1 tablet twice daily Oct 31, 2013 Inactive ACETATE) LOESTRIN FE / 1-20 MG-MCG TABS 1 po q day x 21 days, skip Dec 27, 2013 Active placebos as directed. BACTRIM DS 800-160 MG TABS 1 tab q12h with food. Sep 26, 2013 Inactive BACTROBAN 2 % OINT Apply to affected area Sep 26, 2013 Inactive (finger) BID FLAGYL 500 MG TABS one by mouth BID x 7 days Nov 09, 2013 Inactive MEDROL (NICOLLE) 4 MG TABS Take as directed Jun 15, 2014 Inactive ZOFRAN 8 MG TABS 1 po q d - bid prn nausea Jun 15, 2014 Inactive ZYRTEC ALLERGY 10 MG CAPS 1 capsule daily as needed Jun 15, 2014 Inactive for allergies DICLOFENAC SODIUM 75 MG TBEC 1 tablet twice daily as Jun 15, 2014 Inactive needed for pain ADIPEX-P 37.5 MG CAPS 1 po qd Jun 15, 2014 Inactive HYDROCHLOROTHIAZIDE 25 MG TABS 1 half tablet daily Jun 15, 2014 Inactive LISINOPRIL 10 MG TABS 1 tablet daily Jun 27, 2014 Inactive HYDROCHLOROTHIAZIDE 25 MG TABS 1/2 po q am Jul 12, 2014 Active LISINOPRIL 10 MG TABS 1 tablet daily Jul 12, 2014 Inactive DIFLUCAN TAB 150MG 1 po q 3 days x 2 Jul 11, 2014 Inactive NEXIUM 40 MG CPDR 1 capsule daily Jul 26, 2014 Inactive GAVISCON EXTRA STRENGTH CHEW as instructed Jul 26, 2014 Inactive BROMFED DM 30-2-10 MG/5ML SYRP 1 tsp QID prn cough Jul 26, 2014 Inactive LOSARTAN POTASSIUM 50 MG TABS 1 tablet daily Jul 18, 2014 Inactive LOSARTAN POTASSIUM 100 MG TABS 1 tab QD for blood pressure. Sep 20, 2014 Active OMEPRAZOLE 40 MG CPDR 1 tab QD for reflux. Sep 20, 2014 Active QSYMIA 3.75-23 MG [id number] 1 tab po once daily x14 days Oct 13, 2014 Inactive MACRODANTIN 100 MG CAPS 1 cap q12h with food. Oct 31, 2014 Inactive FLUCONAZOLE 150 MG TABS 1 tab QD for yeast infection Sep 21, 2014 Inactive HYDROCHLOROTHIAZIDE 25 MG TABS 1 tab q AM Sep 20, 2014 Inactive QSYMIA 7.5-46 MG [id number] 1 cap qAM for appetite Sep 20, 2014 Inactive suppresion. LIDOCAINE HCL 2 % GEL Apply in vaginal area for Nov 06, 2014 Active burning when urinating MUPIROCIN 2 % OINT apply to vaginal area for Nov 06, 2014 Active irritation FLUCONAZOLE 150 MG TABS 1 tab QD Nov 06, 2014 Active VAGISIL 5-2 % CREA Apply vaginally q HS. Nov 06, 2014 Active Vital Signs Date Description Test Result Sep 26, 2013 height E&M - 8302-2 HEIGHT 65 in Sep 26, 2013 weight E&M - 3141-9 WEIGHT 195 lb Sep 26, 2013 temperature E&M TEMPERATURE 98 deg f Sep 26, 2013 pulse rate E&M - 8867-4 PULSE RATE 90 /min Sep 26, 2013 blood pressure, systolic - 8480-6 BP SYSTOLIC 138 mm Hg Sep 26, 2013 blood pressure, diastolic - 8462-4 BP DIASTOLIC 93 mm Hg Oct 31, 2013 weight E&M - 3141-9 WEIGHT 191 lb Oct 31, 2013 blood pressure, systolic, sitting, left arm BP SYS SIT L 133 mm Hg Oct 31, 2013 blood pressure, diastolic, sitting, left arm BP VALERY SIT L 88 mm Hg Oct 31, 2013 blood pressure, systolic - 8480-6 BP SYSTOLIC 133 mm Hg Oct 31, 2013 blood pressure, diastolic - 8462-4 BP DIASTOLIC 88 mm Hg Oct 31, 2013 pulse rate, sitting, left PULSE SIT L 103 /min Oct 31, 2013 pulse rate E&M - 8867-4 PULSE RATE 103 /min Nov 15, 2013 weight E&M - 3141-9 WEIGHT 191 lb Nov 15, 2013 blood pressure, systolic, sitting, left arm BP SYS SIT L 141 mm Hg Nov 15, 2013 blood pressure, diastolic, sitting, left arm BP VALERY SIT L 88 mm Hg Nov 15, 2013 blood pressure, systolic - 8480-6 BP SYSTOLIC 141 mm Hg Nov 15, 2013 blood pressure, diastolic - 8462-4 BP DIASTOLIC 88 mm Hg Nov 15, 2013 pulse rate, sitting, left PULSE SIT L 105 /min Nov 15, 2013 pulse rate E&M - 8867-4 PULSE RATE 105 /min Nov 29, 2013 weight E&M - 3141-9 WEIGHT 188 lb Nov 29, 2013 blood pressure, systolic, sitting, left arm BP SYS SIT L 138 mm Hg Nov 29, 2013 blood pressure, diastolic, sitting, left arm BP VALERY SIT L 96 mm Hg Nov 29, 2013 blood pressure, systolic - 8480-6 BP SYSTOLIC 138 mm Hg Nov 29, 2013 blood pressure, diastolic - 8462-4 BP DIASTOLIC 96 mm Hg Nov 29, 2013 pulse rate, sitting, left PULSE SIT L 105 /min Nov 29, 2013 pulse rate E&M - 8867-4 PULSE RATE 105 /min Dec 27, 2013 weight E&M - 3141-9 WEIGHT 192 lb Dec 27, 2013 blood pressure, systolic, sitting, left arm BP SYS SIT L 132 mm Hg Dec 27, 2013 blood pressure, diastolic, sitting, left arm BP VALERY SIT L 95 mm Hg Dec 27, 2013 blood pressure, systolic - 8480-6 BP SYSTOLIC 132 mm Hg Dec 27, 2013 blood pressure, diastolic - 8462-4 BP DIASTOLIC 95 mm Hg Dec 27, 2013 pulse rate, sitting, left PULSE SIT L 109 /min Dec 27, 2013 pulse rate E&M - 8867-4 PULSE RATE 109 /min Jun 15, 2014 weight E&M - 3141-9 WEIGHT 199 lb Jun 15, 2014 pulse rate E&M - 8867-4 PULSE RATE 103 /min Jun 15, 2014 temperature E&M TEMPERATURE 99.8 deg f Jun 15, 2014 blood pressure, systolic - 8480-6 BP SYSTOLIC 145 mm Hg Jun 15, 2014 blood pressure, diastolic - 8462-4 BP DIASTOLIC 89 mm Hg Jun 15, 2014 respiratory rate E&M - 9279-1 RESP RATE 15 /min Jul 11, 2014 weight E&M - 3141-9 WEIGHT 199 lb Jul 11, 2014 blood pressure, systolic, sitting, left arm BP SYS SIT L 149 mm Hg Jul 11, 2014 blood pressure, diastolic, sitting, left arm BP VALERY SIT L 97 mm Hg Jul 11, 2014 blood pressure, systolic - 8480-6 BP SYSTOLIC 149 mm Hg Jul 11, 2014 blood pressure, diastolic - 8462-4 BP DIASTOLIC 97 mm Hg Jul 11, 2014 pulse rate, sitting, left PULSE SIT L 101 /min Jul 11, 2014 pulse rate E&M - 8867-4 PULSE RATE 101 /min Jul 26, 2014 weight E&M - 3141-9 WEIGHT 203 lb Jul 26, 2014 pulse rate E&M - 8867-4 PULSE RATE 102 /min Jul 26, 2014 blood pressure, systolic - 8480-6 BP SYSTOLIC 129 mm Hg Jul 26, 2014 blood pressure, diastolic - 8462-4 BP DIASTOLIC 85 mm Hg Sep 20, 2014 weight E&M - 3141-9 WEIGHT 207 lb Sep 20, 2014 height E&M - 8302-2 HEIGHT 66 in Sep 20, 2014 temperature E&M TEMPERATURE 98.4 deg f Sep 20, 2014 pulse rate E&M - 8867-4 PULSE RATE 89 /min Sep 20, 2014 blood pressure, systolic - 8480-6 BP SYSTOLIC 154 mm Hg Sep 20, 2014 blood pressure, diastolic - 8462-4 BP DIASTOLIC 94 mm Hg Nov 06, 2014 weight E&M - 3141-9 WEIGHT 202 lb Nov 06, 2014 temperature E&M TEMPERATURE 98.5 deg f Nov 06, 2014 pulse rate E&M - 8867-4 PULSE RATE 97 /min Nov 06, 2014 blood pressure, systolic - 8480-6 BP SYSTOLIC 120 mm Hg Nov 06, 2014 blood pressure, diastolic - 8462-4 BP DIASTOLIC 80 mm Hg Results Date Description Test Name Value Reference Interpretation Status Sep 26, hemoglobin, blood HGB 13.6 g/dL 12.0-16.0 2013Sep 26, hematocrit, blood HCT 42.3 % 36.0-48.0 2013Sep 26, platelet count PLATELETS 234 K/CMM 718-759 9669 /mm3 Sep 26, hemoglobin, blood HGB 13.6 g/dL 12.0-16.0 2013Sep 26, hematocrit, blood HCT 42.3 % 36.0-48.0 2013Sep 26, platelet count PLATELETS 234 K/CMM 709-222 7283 /mm3 Oct 31, hemoglobin, blood HGB 13.4 g/dL 12.0-16.0 2013Oct 31, hematocrit, blood HCT 39.6 % 36.0-48.0 2013Oct 31, platelet count PLATELETS 251 K/CMM 017-757 8882 /mm3 Sep 20, hemoglobin, blood HGB 13.8 g/dL 12.0-16.0 2014Sep 20, hematocrit, blood HCT 42.7 % 36.0-48.0 2014Sep 20, platelet count PLATELETS 256 K/CMM 971-474 1548 /mm3 Sep 26, urine color UA COLOR Colorless Yellow 2013 null Sep 26, bacteria, urine BACTERIA URN Few null None Seen 2013 microscopy Sep 26, urine color UA COLOR Colorless Yellow 2014 null Sep 26, bacteria, urine BACTERIA URN Few null None Seen 2013 microscopy Sep 20, urine color UA COLOR Yellow null Yellow 2014Sep 20, bacteria, urine BACTERIA URN Few null None Seen 2014 microscopy Sep 26, cholesterol, serum CHOLESTEROL 172 mg/dl <=199 2013Sep 26, triglyceride, TRIGLYCERIDE 123 mg/dl <=149 2013 serum, fasting Sep 26, HDL cholesterol, HDL 61 mg/dl >=61 2013 serum Sep 26, LDL cholesterol, LDL 86 mg/dl <=99 2013 serum Sep 26, sodium, serum SODIUM 140 MEQ/L 019-397 4210 mmol/L Sep 26, potassium, serum POTASSIUM 3.9 [...] Sep 26, sodium, serum SODIUM 140 MEQ/L 932-936 9408 mmol/L Sep 26, potassium, serum POTASSIUM 3.9 [...] Oct 31, sodium, serum SODIUM 140 MEQ/L 808-436 4683 mmol/L Oct 31, potassium, serum POTASSIUM 3.7 MEQ/L 3.5-5.1 2013 mmol/L Oct 31, creatinine, serum CREATININE 0.8 mg/dL 0.5-1.4 2013Oct 31, urea nitrogen, BUN 12 mg/dL 7-2013 blood Oct 31, urea BUN/CREAT 15 null 6-25 2013 nitrogen/creatinine ratio, serum Oct 31, albumin, serum [...] luteinizing LH 5.59 mIU/mL 2013 hormone, serum Sep 20, cholesterol, serum CHOLESTEROL 180 mg/dl <=199 2014Sep 20, triglyceride, TRIGLYCERIDE 102 mg/dl <=149 2014 serum, fasting Sep 20, HDL cholesterol, HDL 58 mg/dl >=61 Low 2014 serum Sep 20, LDL cholesterol, LDL 102 mg/dl <=99 High 2014 serum Sep 20, sodium, serum SODIUM 142 MEQ/L 782-207 7912 mmol/L Sep 20, potassium, serum POTASSIUM 4.4 MEQ/L 3.5-5.1 2014 mmol/L Sep 20, creatinine, serum CREATININE 0.6 mg/dL 0.5-1.4 2014Sep 20, urea nitrogen, BUN 13 mg/dL 7-22 2014 blood Sep 20, urea BUN/CREAT 22 null 6-2014 nitrogen/creatinine ratio, serum Sep 20, albumin, serum ALBUMIN 3.5 g/dL 3.5-5.0 2014Sep 20, calcium, serum CALCIUM 8.5 mg/dL 8.5-10.5 2014Sep 20, alanine SGPT (ALT) 25 U/L 0-65 2014 aminotransferase (SGPT), serum Sep 20, aspartate SGOT (AST) 19 U/L 0-37 2014 aminotransferase (SGOT), serum Sep 20, alkaline ALK PHOS 77 U/L 39-136 2014 phosphatase, serum Sep 20, Helicobacter pylori HELICOB IGG <0.4 U/mL 2015 antibody, IgG, null serum August 04, vaginal Pap smear PAP SMEAR Normal null 2013 results Oct 31, vaginal Pap smear PAP SMEAR normal null 2014 results
--- OUTSIDE RECORDS SUMMARY | 2017-10-29 15:10 | XMS REPORT | Continuity of Care Document ---
:1975 Author Organization [facility] Care Team Providers Name Role Phone MD Mely, Gerson Unavailable Unavailable Insurance Providers Payer name Policy type / Coverage Policy ID Covered constitution party ID Policy Olivia type [place] Encounters Encounter Performer Location Date Office Visit Gerson Boone MD [facility] Medical [place] [address] Allergies, Adverse Reactions, Alerts Type Substance Reaction Status Drug allergy PENICILLIN rash Active Problems Problem Effective Dates Problem Status MIGRAINE HEADACHE Active MIGRAINE - UNSPECIFIED WITHOUT MENTION OF INTRACTABLE Sep 26, 2013 Active ROUTINE GENERAL MEDICAL EXAMINATION AT A [facility] Sep 26, 2013 Active FACILITY ELEVATED BLOOD [...] Oct 31, 2013 Inactive ACETATE) LOESTRIN FE 1/20 1-20 MG-MCG 1 po q day x 21 days, skip Dec 27, 2013 Active TABS placebos as directed. Vital Signs Date Description Test Result Sep [...] E&M - 8867-4 PULSE RATE 109 /min Results Date Description Test Name Value Reference Interpretation Status Sep 26, hemoglobin, blood HGB 13.6 g/dL 12.0-16.0 2013Sep 26, hematocrit, blood HCT 42.3 % 36.0-48.0 2013Sep 26, platelet count PLATELETS 234 K/CMM 050-707 8486 /mm3 Sep 26, hemoglobin, blood HGB 13.6 g/dL 12.0-16.0 2013Sep 26, hematocrit, blood HCT 42.3 % 36.0-48.0 2013Sep 26, platelet count PLATELETS 234 K/CMM [phone] /mm3 Oct 31, hemoglobin, blood HGB 13.4 g/dL 12.0-16.0 2013Oct 31, hematocrit, blood HCT 39.6 % 36.0-48.0 2013Oct 31, platelet count PLATELETS 251 K/CMM 584-306 1733 /mm3 Sep 26, urine color UA COLOR [...] Sep 26, sodium, serum SODIUM 140 MEQ/L 536-564 5147 mmol/L Sep 26, potassium, serum POTASSIUM 3.9 [...] Sep 26, sodium, serum SODIUM 140 MEQ/L 957-059 3885 mmol/L Sep 26, potassium, serum POTASSIUM 3.9 [...] Oct 31, sodium, serum SODIUM 140 MEQ/L 544-647 2576 mmol/L Oct 31, potassium, serum POTASSIUM 3.7 [...]
--- OUTSIDE RECORDS SUMMARY | 2017-10-29 15:10 | XMS REPORT | Continuity of Care Document ---
:1975 Author Organization [facility] Care Team Providers Name Role Phone RONALD Rosado, Felix Unavailable Unavailable Insurance Providers Payer name Policy type / Coverage Policy ID Covered libertarian ID Policy Olivia type [place]) [place] Encounters Encounter Performer Location Date Lab Report RONALD Mitchell [facility] Nov 07, 2014 Center Allergies, Adverse Reactions, Alerts Type Substance Reaction Status Drug allergy PENICILLIN rash Active Drug allergy LISINOPRIL cough Active Problems Problem Effective Dates Problem Status MIGRAINE HEADACHE Inactive MIGRAINE - UNSPECIFIED WITHOUT MENTION OF INTRACTABLE Sep 26, 2013 Active ROUTINE GENERAL MEDICAL EXAMINATION AT [facility] Sep 26, 2013 Inactive FACILITY ELEVATED BLOOD [...] Active ROUTINE GENERAL MEDICAL EXAMINATION AT A [facility] Sep 20, 2014 Active FACILITY DYSPEPSIA AND [...] Sep 20, 2014 Active QSYMIA 3.75-23 MG [id number] 1 tab po once daily x14 days Oct 13, 2014 Inactive MACRODANTIN 100 MG CAPS 1 cap q12h with food. Oct 31, 2014 Inactive FLUCONAZOLE 150 MG TABS 1 tab QD for yeast infection Sep 21, 2014 Inactive HYDROCHLOROTHIAZIDE 25 MG TABS 1 tab q AM Sep 20, 2014 Inactive QSYMIA 7.5-46 MG [id number] 1 cap qAM for appetite Sep 20, [...] 2013Sep 26, platelet count PLATELETS 234 K/CMM 385-455 8197 /mm3 Sep 26, hemoglobin, blood HGB 13.6 g/dL 12.0-16.0 2013Sep 26, hematocrit, blood HCT 42.3 % 36.0-48.0 2013Sep 26, platelet count PLATELETS 234 K/CMM 769-504 5740 /mm3 Oct 31, hemoglobin, blood HGB 13.4 g/dL 12.0-16.0 2013Oct 31, hematocrit, blood HCT 39.6 % 36.0-48.0 2013Oct 31, platelet count PLATELETS 251 K/CMM 867-493 7219 /mm3 Sep 20, hemoglobin, blood HGB 13.8 g/dL 12.0-16.0 2014Sep 20, hematocrit, blood HCT 42.7 % 36.0-48.0 2014Sep 20, platelet count PLATELETS 256 K/CMM [phone] /mm3 Sep 26, urine color UA COLOR [...] Sep 26, sodium, serum SODIUM 140 MEQ/L 133-809 1518 mmol/L Sep 26, potassium, serum POTASSIUM 3.9 [...] Sep 26, sodium, serum SODIUM 140 MEQ/L 243-444 9570 mmol/L Sep 26, potassium, serum POTASSIUM 3.9 [...] Oct 31, sodium, serum SODIUM 140 MEQ/L 904-622 6733 mmol/L Oct 31, potassium, serum POTASSIUM 3.7 [...] Sep 20, sodium, serum SODIUM 142 MEQ/L 271-048 4364 mmol/L Sep 20, potassium, serum POTASSIUM 4.4 [...]
--- OUTSIDE RECORDS SUMMARY | 2017-10-29 15:11 | XMS REPORT | Continuity of Care Document ---
:1975 Author Organization [facility] Care Team Providers Name Role Phone MD Mely, Gerson Unavailable Unavailable Insurance Providers Payer name Policy type / Coverage Policy ID Covered democrat ID Policy Olivia type [place] Encounters Encounter Performer Location Date Office Visit Gerson Boone MD [facility] [place] [facility] Allergies, Adverse Reactions, Alerts Type Substance Reaction Status Drug allergy PENICILLIN rash Active Drug allergy LISINOPRIL cough Active Problems Problem Effective Dates Problem Status MIGRAINE HEADACHE Inactive MIGRAINE - UNSPECIFIED WITHOUT MENTION OF INTRACTABLE Sep 26, 2013 Active ROUTINE GENERAL MEDICAL EXAMINATION AT [facility] Sep 26, 2013 Inactive FACILITY ELEVATED BLOOD [...] 2014 Active ROUTINE GENERAL MEDICAL EXAMINATION AT [facility] Sep 20, 2014 Active FACILITY DYSPEPSIA AND OTHER SPECIFIED DISORDERS OF FUNCTION OF Sep 20, 2014 Active STOMACH CHANGE IN BOWEL HABITS Sep 20, 2014 Active Procedures Date Description Comments Sep [...] Sep 20, 2014 smoking status Never smoker Medications Medication [...] for blood pressure. Sep 20, 2014 Active HYDROCHLOROTHIAZIDE 25 MG TABS 1 tab q AM Sep 20, 2014 Active QSYMIA 7.5-46 MG [id number] 1 cap q AM for appetite Sep 20, 2014 Active suppression. QSYMIA 7.5-46 MG [id number] 1 cap qAM for appetite Sep 20, 2014 Active suppresion. OMEPRAZOLE 40 MG CPDR 1 tab QD for reflux. Sep 20, 2014 Active FLUCONAZOLE 150 MG TABS 1 tab QD for yeast infection Sep 21, 2014 Active Vital Signs Date Description Test [...] - 8462-4 BP DIASTOLIC 94 mm Hg Results Date Description Test Name Value Reference Interpretation Status Sep 26, hemoglobin, blood HGB 13.6 g/dL 12.0-16.0 2013Sep 26, hematocrit, blood HCT 42.3 % 36.0-48.0 2013Sep 26, platelet count PLATELETS 234 K/CMM 424-667 5250 /mm3 Sep 26, hemoglobin, blood HGB 13.6 g/dL 12.0-16.0 2013Sep 26, hematocrit, blood HCT 42.3 % 36.0-48.0 2013Sep 26, platelet count PLATELETS 234 K/CMM 258-669 0192 /mm3 Oct 31, hemoglobin, blood HGB 13.4 g/dL 12.0-16.0 2013Oct 31, hematocrit, blood HCT 39.6 % 36.0-48.0 2013Oct 31, platelet count PLATELETS 251 K/CMM 774-008 7969 /mm3 Sep 20, hemoglobin, blood HGB 13.8 g/dL 12.0-16.0 2014Sep 20, hematocrit, blood HCT 42.7 % 36.0-48.0 2014Sep 20, platelet count PLATELETS 256 K/CMM 859-405 2733 /mm3 Sep 26, urine color UA COLOR [...] Sep 26, sodium, serum SODIUM 140 MEQ/L [phone] mmol/L Sep 26, potassium, serum POTASSIUM 3.9 [...] Sep 26, sodium, serum SODIUM 140 MEQ/L 511-784 2351 mmol/L Sep 26, potassium, serum POTASSIUM 3.9 [...] Oct 31, sodium, serum SODIUM 140 MEQ/L [phone] mmol/L Oct 31, potassium, serum POTASSIUM 3.7 [...] Sep 20, sodium, serum SODIUM 142 MEQ/L 590-306 8773 mmol/L Sep 20, potassium, serum POTASSIUM 4.4 MEQ/L 3.5-5.1 2014 mmol/L Sep 20, creatinine, serum CREATININE 0.6 mg/dL 0.5-1.4 2014Sep 20, urea nitrogen, BUN 13 mg/dL 7-2014 blood Sep 20, urea BUN/CREAT 22 null 6-25 2014 nitrogen/creatinine ratio, serum Sep 20, albumin, serum [...]
--- OUTSIDE RECORDS SUMMARY | 2017-10-29 15:11 | XMS REPORT | Continuity of Care Document ---
:1975 Author Organization [facility] Care Team Providers Name Role Phone MD Mely, Gerson Unavailable Unavailable Insurance Providers Payer name Policy type / Coverage Policy ID Covered alliance party ID Policy Olivia type [place]) [place] Encounters Encounter Performer Location Date Office Visit Gerson Boone MD [facility] [address] Allergies, Adverse Reactions, Alerts Type Substance Reaction Status Drug allergy PENICILLIN rash Active Problems Problem Effective Dates Problem Status MIGRAINE HEADACHE Inactive MIGRAINE - UNSPECIFIED WITHOUT MENTION OF INTRACTABLE Sep 26, 2013 Active ROUTINE GENERAL MEDICAL EXAMINATION AT A [facility] Sep 26, 2013 Active FACILITY ELEVATED BLOOD PRESSURE READING WITHOUT DIAGNOSIS OF Sep 26, 2013 Inactive HYPERTENSION MENORRHAGIA Sep 26, 2013 Inactive WELL WOMAN EXAM Oct 31, 2013 Active GALACTORRHEA Oct 31, 2013 Active MENORRHAGIA Oct 31, 2013 Active HEADACHE NOS Jun 15, 2014 Inactive NECK PAIN Jun 15, 2014 Active DRY SKIN Jun 15, 2014 Active ELEVATED BLOOD PRESSURE Jun 15, 2014 Active LYMPHADENITIS, ACUTE Jun 15, 2014 Active SPONDYLOSIS, CERVICAL Jun 15, 2014 Active CONTRACEPTIVE MANAGEMENT Jul 11, 2014 Active VAGINITIS Jul 11, 2014 Active Procedures Date Description Comments Sep 26, 2013 smoking status Never smoker August 04, 2012 vaginal Pap smear results Normal Oct 31, 2013 vaginal Pap smear results normal Oct 31, 2013 smoking status Never smoker Nov 29, 2013 smoking status Never smoker Jun 15, 2014 smoking status Never smoker Medications Medication Instructions Start Date Status TRINESSA () 0.18/0.215/0.25 MG-35 Inactive MCG TABS TOPAMAX 50 [...] 1 tablet daily Jun 27, 2014 Inactive DIFLUCAN TAB 150MG 1 po q 3 days x 2 Jul 11, 2014 Active Vital Signs Date Description Test [...] E&M - 8867-4 PULSE RATE 101 /min Results Date Description Test Name Value Reference Interpretation Status Sep 26, hemoglobin, blood HGB 13.6 g/dL 12.0-16.0 2013Sep 26, hematocrit, blood HCT 42.3 % 36.0-48.0 2013Sep 26, platelet count PLATELETS 234 K/CMM 642-716 0410 /mm3 Sep 26, hemoglobin, blood HGB 13.6 g/dL 12.0-16.0 2013Sep 26, hematocrit, blood HCT 42.3 % 36.0-48.0 2013Sep 26, platelet count PLATELETS 234 K/CMM 318-794 7158 /mm3 Oct 31, hemoglobin, blood HGB 13.4 g/dL 12.0-16.0 2013Oct 31, hematocrit, blood HCT 39.6 % 36.0-48.0 2013Oct 31, platelet count PLATELETS 251 K/CMM 071-671 1206 /mm3 Sep 26, urine color UA COLOR [...] Sep 26, sodium, serum SODIUM 140 MEQ/L [phone] mmol/L Sep 26, potassium, serum POTASSIUM 3.9 MEQ/L 3.5-5.1 2013 mmol/L Sep 26, creatinine, serum CREATININE 0.6 mg/dL 0.5-1.4 2013Sep 26, urea nitrogen, BUN 9 mg/dL 7-22 2013 blood Sep 26, urea BUN/CREAT 15 null 6-25 2014 nitrogen/creatinine ratio, serum Sep 26, albumin, serum [...] Sep 26, sodium, serum SODIUM 140 MEQ/L 234-404 5962 mmol/L Sep 26, potassium, serum POTASSIUM 3.9 [...] Oct 31, sodium, serum SODIUM 140 MEQ/L [phone] mmol/L Oct 31, potassium, serum POTASSIUM 3.7 MEQ/L 3.5-5.1 2013 mmol/L Oct 31, creatinine, serum CREATININE 0.8 mg/dL 0.5-1.4 2013Oct 31, urea nitrogen, BUN 12 mg/dL -2013 blood Oct 31, urea BUN/CREAT 15 null [...]
--- OUTSIDE RECORDS SUMMARY | 2017-10-29 15:11 | XMS REPORT | Continuity of Care Document ---
:1975 Author Organization [facility] Care Team Providers Name Role Phone RONALD Rosado, Felix Unavailable Unavailable Insurance Providers Payer name Policy type / Coverage Policy ID Covered constitution party ID Policy Olivia type [place]) [place] Encounters Encounter Performer Location Date Office Visit RONALD Mitchell [facility] Nov 07, 2014 Center Allergies, Adverse Reactions, Alerts Type Substance Reaction Status Drug allergy PENICILLIN rash Active Drug allergy LISINOPRIL cough Active Problems Problem Effective Dates Problem Status MIGRAINE HEADACHE Inactive MIGRAINE - UNSPECIFIED WITHOUT MENTION OF INTRACTABLE Sep 26, 2013 Active ROUTINE GENERAL MEDICAL EXAMINATION AT [facility] Sep 26, 2013 Inactive FACILITY ELEVATED [...] Active ROUTINE GENERAL MEDICAL EXAMINATION AT [facility] Sep 20, 2014 Active FACILITY DYSPEPSIA [...] Sep 20, 2014 Active QSYMIA 3.75-23 MG [id number] 1 tab po once daily x14 days Oct 13, 2014 Inactive MACRODANTIN 100 MG CAPS 1 cap q12h with food. Oct 31, 2014 Inactive FLUCONAZOLE 150 MG TABS 1 tab QD for yeast infection Sep 21, 2014 Inactive HYDROCHLOROTHIAZIDE 25 MG TABS 1 tab q AM Sep 20, 2014 Inactive QSYMIA 7.5-46 MG [id number] 1 cap qAM for appetite Sep 20, [...] 2013Sep 26, platelet count PLATELETS 234 K/CMM 391-048 5039 /mm3 Sep 26, hemoglobin, blood HGB 13.6 g/dL 12.0-16.0 2013Sep 26, hematocrit, blood HCT 42.3 % 36.0-48.0 2013Sep 26, platelet count PLATELETS 234 K/CMM 959-264 5460 /mm3 Oct 31, hemoglobin, blood HGB 13.4 g/dL 12.0-16.0 2013Oct 31, hematocrit, blood HCT 39.6 % 36.0-48.0 2013Oct 31, platelet count PLATELETS 251 K/CMM 920-952 8104 /mm3 Sep 20, hemoglobin, blood HGB 13.8 g/dL 12.0-16.0 2014Sep 20, hematocrit, blood HCT 42.7 % 36.0-48.0 2014Sep 20, platelet count PLATELETS 256 K/CMM 046-781 5367 /mm3 Sep 26, urine color UA COLOR [...] Sep 26, sodium, serum SODIUM 140 MEQ/L 334-965 2814 mmol/L Sep 26, potassium, serum POTASSIUM 3.9 [...] Sep 26, sodium, serum SODIUM 140 MEQ/L 332-405 5942 mmol/L Sep 26, potassium, serum POTASSIUM 3.9 [...] Oct 31, sodium, serum SODIUM 140 MEQ/L 236-000 5221 mmol/L Oct 31, potassium, serum POTASSIUM 3.7 [...] Sep 20, sodium, serum SODIUM 142 MEQ/L 694-306 9058 mmol/L Sep 20, potassium, serum POTASSIUM 4.4 [...]
--- OUTSIDE RECORDS SUMMARY | 2017-10-29 15:11 | XMS REPORT | Continuity of Care Document ---
:1975 Author Organization [facility] Care Team Providers Name Role Phone RONALD Rosado, Felix Unavailable Unavailable Insurance Providers Payer name Policy type / Coverage Policy ID Covered green party ID Policy Olivia type [place]) [place] Encounters Encounter Performer Location Date Office Visit RONALD Mitchell [facility] Jul 26, 2014 Center Allergies, Adverse Reactions, Alerts Type Substance Reaction Status Drug allergy PENICILLIN rash Active Drug allergy LISINOPRIL cough Active Problems Problem Effective Dates Problem Status MIGRAINE HEADACHE Inactive MIGRAINE - UNSPECIFIED WITHOUT MENTION OF INTRACTABLE Sep 26, 2013 Active ROUTINE GENERAL MEDICAL EXAMINATION AT [facility] Sep 26, 2013 Active FACILITY ELEVATED [...] RHINITIS, CAUSE UNSPECIFIED Jul 26, 2014 Active Procedures Date Description Comments Sep 26, 2013 smoking status Never smoker August 04, 2012 vaginal Pap smear results Normal Oct 31, 2013 vaginal Pap smear results normal Oct 31, 2013 smoking status Never smoker Nov 29, 2013 smoking status Never smoker Jun 15, 2014 smoking status Never smoker Jul 26, 2014 smoking status Never smoker Medications Medication Instructions Start Date Status TRINESSA (28) 0.18/0.215/0.25 MG-35 Inactive MCG TABS TOPAMAX 50 MG TABS twice a day Inactive MEGACE 20 MG TABS (MEGESTROL 1 tablet twice daily Oct 31, 2013 Inactive ACETATE) LOESTRIN FE 04/25 1-20 MG-MCG TABS 1 po q day [...] days x 2 Jul 11, 2014 Active HYDROCHLOROTHIAZIDE 25 MG TABS 1/2 po q am Jul 12, 2014 Active LISINOPRIL 10 MG TABS 1 tablet daily Jul 12, 2014 Inactive LOSARTAN POTASSIUM 50 MG TABS 1 tablet daily Jul 18, 2014 Active NEXIUM 40 MG CPDR 1 capsule daily Jul 26, 2014 Active GAVISCON EXTRA STRENGTH CHEW as instructed Jul 26, 2014 Active BROMFED DM 30-2-10 MG/5ML SYRP 1 tsp QID prn cough Jul 26, 2014 Active Vital Signs Date Description Test [...] - 8462-4 BP DIASTOLIC 85 mm Hg Results Date Description Test Name Value Reference Interpretation Status Sep 26, hemoglobin, blood HGB 13.6 g/dL 12.0-16.0 2013Sep 26, hematocrit, blood HCT 42.3 % 36.0-48.0 2013Sep 26, platelet count PLATELETS 234 K/CMM [phone] /mm3 Sep 26, hemoglobin, blood HGB 13.6 g/dL 12.0-16.0 2013Sep 26, hematocrit, blood HCT 42.3 % 36.0-48.0 2013Sep 26, platelet count PLATELETS 234 K/CMM 429-059 3758 /mm3 Oct 31, hemoglobin, blood HGB 13.4 g/dL 12.0-16.0 2013Oct 31, hematocrit, blood HCT 39.6 % 36.0-48.0 2013Oct 31, platelet count PLATELETS 251 K/CMM 017-632 1251 /mm3 Sep 26, urine color UA COLOR [...] Sep 26, sodium, serum SODIUM 140 MEQ/L 963-881 7385 mmol/L Sep 26, potassium, serum POTASSIUM 3.9 [...] 26, alkaline ALK PHOS 87 U/L 39-136 2014 phosphatase, serum Sep 26, thyroid stimulating TSH 1.110 uIU/mL 0.360-3.740 2014 hormone, serum Sep 26, cholesterol, serum CHOLESTEROL 172 mg/dl <=199 2013Sep 26, triglyceride, TRIGLYCERIDE 123 mg/dl <=149 2013 serum, fasting Sep 26, HDL cholesterol, HDL 61 mg/dl >=61 2013 serum Sep 26, LDL cholesterol, LDL 86 mg/dl <=99 2013 serum Sep 26, sodium, serum SODIUM 140 MEQ/L [phone] mmol/L Sep 26, potassium, serum POTASSIUM 3.9 [...] Oct 31, sodium, serum SODIUM 140 MEQ/L 974-564 8043 mmol/L Oct 31, potassium, serum POTASSIUM 3.7 MEQ/L 3.5-5.1 2013 mmol/L Oct 31, creatinine, serum CREATININE 0.8 mg/dL 0.5-1.4 2013Oct 31, urea nitrogen, BUN 12 mg/dL -2013 blood Oct 31, urea BUN/CREAT 15 null 62013 nitrogen/creatinine ratio, serum Oct 31, albumin, serum [...]
--- OUTSIDE RECORDS SUMMARY | 2017-10-29 15:11 | XMS REPORT | Continuity of Care Document ---
:1975 Author Organization [facility] Care Team Providers Name Role Phone RONALD Rosado, Felix Unavailable Unavailable Insurance Providers Payer name Policy type / Coverage Policy ID Covered green party ID Policy Olivia type [place] Encounters Encounter Performer Location Date Office Visit RONALD Mitchell [facility] Jun 15, 2014 Center Allergies, Adverse Reactions, Alerts Type Substance Reaction Status Drug allergy PENICILLIN rash Active Problems Problem Effective Dates Problem Status MIGRAINE HEADACHE Active MIGRAINE - UNSPECIFIED WITHOUT MENTION OF INTRACTABLE Sep 26, 2013 Active ROUTINE GENERAL MEDICAL EXAMINATION AT A [facility] Sep 26, 2013 Active FACILITY ELEVATED BLOOD PRESSURE READING WITHOUT DIAGNOSIS OF Sep 26, 2013 Active HYPERTENSION MENORRHAGIA Sep 26, 2013 Inactive WELL WOMAN EXAM Oct 31, 2013 Active GALACTORRHEA Oct 31, 2013 Active MENORRHAGIA Oct 31, 2013 Active HEADACHE NOS Jun 15, 2014 Active NECK PAIN Jun 15, 2014 Active DRY SKIN Jun 15, 2014 Active ELEVATED BLOOD PRESSURE Jun 15, 2014 Active LYMPHADENITIS, ACUTE Jun 15, 2014 Active SPONDYLOSIS, CERVICAL Jun 15, 2014 Active Procedures Date Description Comments Sep [...] x 7 days Nov 09, 2013 Inactive ZYRTEC ALLERGY 10 MG CAPS 1 capsule daily as needed Jun 15, 2014 Active for allergies DICLOFENAC SODIUM 75 MG TBEC 1 tablet twice daily as Jun 15, 2014 Active needed for pain ADIPEX-P 37.5 MG CAPS 1 po qd Jun 15, 2014 Active HYDROCHLOROTHIAZIDE 25 MG TABS 1 half tablet daily Jun 15, 2014 Active MEDROL (NICOLLE) 4 MG TABS Take as directed Jun 15, 2014 Active ZOFRAN 8 MG TABS 1 po q d - bid prn nausea Jun 15, 2014 Active Vital Signs Date Description Test [...] E&M - 9279-1 RESP RATE 15 /min Results Date Description Test Name Value Reference Interpretation Status Sep 26, hemoglobin, blood HGB 13.6 g/dL 12.0-16.0 2013Sep 26, hematocrit, blood HCT 42.3 % 36.0-48.0 2013Sep 26, platelet count PLATELETS 234 K/CMM [phone] /mm3 Sep 26, hemoglobin, blood HGB 13.6 g/dL 12.0-16.0 2013Sep 26, hematocrit, blood HCT 42.3 % 36.0-48.0 2013Sep 26, platelet count PLATELETS 234 K/CMM 350-856 4593 /mm3 Oct 31, hemoglobin, blood HGB 13.4 g/dL 12.0-16.0 2013Oct 31, hematocrit, blood HCT 39.6 % 36.0-48.0 2013Oct 31, platelet count PLATELETS 251 K/CMM 538-317 8857 /mm3 Sep 26, urine color UA COLOR [...] Sep 26, sodium, serum SODIUM 140 MEQ/L 271-213 2454 mmol/L Sep 26, potassium, serum POTASSIUM 3.9 [...] 2013Sep 26, triglyceride, TRIGLYCERIDE 123 mg/dl <=149 2014 serum, fasting Sep 26, HDL cholesterol, HDL 61 mg/dl >=61 2014 serum Sep 26, LDL cholesterol, LDL 86 mg/dl <=99 2013 serum Sep 26, sodium, serum SODIUM 140 MEQ/L 400-448 8682 mmol/L Sep 26, potassium, serum POTASSIUM 3.9 MEQ/L 3.5-5.1 2013 mmol/L Sep 26, creatinine, serum CREATININE 0.6 mg/dL 0.5-1.4 2013Sep 26, urea nitrogen, BUN 9 mg/dL -2013 blood Sep 26, urea BUN/CREAT 15 null [...] Oct 31, sodium, serum SODIUM 140 MEQ/L 791-610 1740 mmol/L Oct 31, potassium, serum POTASSIUM 3.7 [...]
--- OUTSIDE RECORDS SUMMARY | 2017-10-29 15:12 | XMS REPORT | Summary of Care ---
:1975 Author Encounter KENZIE Cárdenas(MICHEL) [id number] Date(s): 10/02/14 - 10/02/14 [facility] Outpatient Imaging [address] Discharge Disposition: Home Physician Attending: Felix Rosado PP Camera Operator Vital Signs No data available for this section Problem List Condition Effective Dates Status Health Status Informant Elevated blood-pressure reading 09/26/13 Active without diagnosis of hypertension1 Galactorrhea not associated with 10/31/13 Active childbirth2 Menorrhagia3 10/31/13 Active Migraine4 Active 1Data migrated from [employer] on 09/02/14.2Data migrated from [employer] on 09/02/14.3Data migrated from [employer] on 09/02/14.4Data migrated from [employer] on 09/02/14. Allergies, Adverse Reactions, Alerts No data available for this section Medications No data available for this section Results No data available for this section Immunizations No data available for this section Procedures No data available for this section Social History No data available for this section Assessment and Plan No data available for this section
--- OUTSIDE RECORDS SUMMARY | 2017-10-29 15:12 | XMS REPORT | Continuity of Care Document ---
:1975 Author Organization [facility] Care Team Providers Name Role Phone MD Boone Marc Unavailable Unavailable Insurance Providers Payer name Policy type / Coverage Policy ID Covered republican ID Policy Olivia type [place]) [place] Encounters Encounter Performer Location Date Lab Report Gerson Boone MD [facility] Nov 14, 2014 Allergies, Adverse Reactions, Alerts Type Substance Reaction Status Drug allergy PENICILLIN rash Active Drug allergy LISINOPRIL cough Active Problems Problem Effective Dates Problem Status MIGRAINE HEADACHE Inactive MIGRAINE - UNSPECIFIED WITHOUT MENTION OF INTRACTABLE Sep 26, 2013 Active ROUTINE GENERAL MEDICAL EXAMINATION AT A [facility] Sep 26, 2013 Inactive FACILITY ELEVATED BLOOD PRESSURE READING WITHOUT DIAGNOSIS OF Sep 26, 2013 Inactive HYPERTENSION MENORRHAGIA Sep 26, 2013 Inactive WELL WOMAN EXAM Oct 31, 2013 Active GALACTORRHEA Oct 31, 2013 Inactive MENORRHAGIA Oct 31, 2013 Active HEADACHE NOS Jun 15, 2014 Inactive NECK PAIN Jun 15, 2014 Active DRY SKIN Jun 15, 2014 Active ELEVATED BLOOD PRESSURE Jun 15, 2014 Inactive LYMPHADENITIS, ACUTE Jun 15, 2014 Inactive SPONDYLOSIS, CERVICAL Jun 15, 2014 Active CONTRACEPTIVE MANAGEMENT Jul 11, 2014 Inactive VAGINITIS Jul 11, 2014 Inactive COUGH DUE TO ADA INHIBITORS Jul 26, 2014 Active GERD - REFLUX, ESOPHAGEAL Jul 26, 2014 Active HYPERTENSION, BENIGN ESSENTIAL Jul 26, 2014 Active MORBID OBESITY Jul 26, 2014 Active ALLERGIC RHINITIS, CAUSE UNSPECIFIED Jul 26, 2014 Inactive ROUTINE GENERAL MEDICAL EXAMINATION AT A [facility] Sep 20, 2014 Inactive FACILITY DYSPEPSIA AND OTHER SPECIFIED DISORDERS OF FUNCTION OF Sep 20, 2014 Inactive STOMACH CHANGE IN BOWEL HABITS Sep 20, 2014 Inactive CANDIDIASIS, VAGINAL Nov 06, 2014 Inactive DYSURIA Nov 06, 2014 Inactive Procedures Date Description Comments Sep 26, 2013 [...] Sep 20, 2014 Active QSYMIA 3.75-23 MG [id number] 1 tab po once daily x14 days Oct 13, 2014 Inactive MACRODANTIN 100 MG CAPS 1 cap q12h with food. Oct 31, 2014 Inactive FLUCONAZOLE 150 MG TABS 1 tab QD for yeast infection Sep 21, 2014 Inactive HYDROCHLOROTHIAZIDE 25 MG TABS 1 tab q AM Sep 20, 2014 Inactive QSYMIA 7.5-46 MG [id number] 1 cap qAM for appetite Sep 20, [...] - 8462-4 BP DIASTOLIC 80 mm Hg Nov 14, 2014 weight E&M - 3141-9 WEIGHT 206 lb Nov 14, 2014 blood pressure, systolic, sitting, left arm BP SYS SIT L 119 mm Hg Nov 14, 2014 blood pressure, diastolic, sitting, left arm BP VALERY SIT L 79 mm Hg Nov 14, 2014 blood pressure, systolic - 8480-6 BP SYSTOLIC 119 mm Hg Nov 14, 2014 blood pressure, diastolic - 8462-4 BP DIASTOLIC 79 mm Hg Nov 14, 2014 pulse rate, sitting, left PULSE SIT L 106 /min Nov 14, 2014 pulse rate E&M - 8867-4 PULSE RATE 106 /min Results Date Description Test Name Value Reference Interpretation Status Sep 26, hemoglobin, blood HGB 13.6 g/dL 12.0-16.0 2013Sep 26, hematocrit, blood HCT 42.3 % 36.0-48.0 2013Sep 26, platelet count PLATELETS 234 K/CMM 374-161 1702 /mm3 Sep 26, hemoglobin, blood HGB 13.6 g/dL 12.0-16.0 2013Sep 26, hematocrit, blood HCT 42.3 % 36.0-48.0 2013Sep 26, platelet count PLATELETS 234 K/CMM 696-624 3447 /mm3 Oct 31, hemoglobin, blood HGB 13.4 g/dL 12.0-16.0 2013Oct 31, hematocrit, blood HCT 39.6 % 36.0-48.0 2013Oct 31, platelet count PLATELETS 251 K/CMM 876-285 8897 /mm3 Sep 20, hemoglobin, blood HGB 13.8 g/dL 12.0-16.0 2014Sep 20, hematocrit, blood HCT 42.7 % 36.0-48.0 2014Sep 20, platelet count PLATELETS 256 K/CMM 516-659 5161 /mm3 Sep 26, urine color UA COLOR [...] Sep 26, sodium, serum SODIUM 140 MEQ/L 091-861 4058 mmol/L Sep 26, potassium, serum POTASSIUM 3.9 [...] Sep 26, sodium, serum SODIUM 140 MEQ/L [phone] mmol/L Sep 26, potassium, serum POTASSIUM 3.9 [...] Oct 31, sodium, serum SODIUM 140 MEQ/L 852-565 5543 mmol/L Oct 31, potassium, serum POTASSIUM 3.7 [...] HDL cholesterol, HDL 58 mg/dl >=61 Low 2015 serum Sep 20, LDL cholesterol, LDL 102 mg/dl <=99 High 2015 serum Sep 20, sodium, serum SODIUM 142 MEQ/L 357-511 9362 mmol/L Sep 20, potassium, serum POTASSIUM 4.4 [...]
--- OUTSIDE RECORDS SUMMARY | 2017-10-29 15:12 | XMS REPORT | Summary of Care ---
:1975 Author Encounter [facility] Liset_benjamin(MICHEL) [id number] Date(s): 07/26/14 - 07/26/14 [facility] Outpatient Imaging [place] [address] Discharge Disposition: Home Physician Attending: Felix Rosado PP Gin Operator Vital Signs No data available for this section Problem List No data available for this section Allergies, Adverse Reactions, Alerts No data available for this section Medications No data available for this section Results No data available for this section Immunizations No data available for this section Procedures No data available for this section Social History No data available for this section Assessment and Plan No data available for this section
--- OUTSIDE RECORDS SUMMARY | 2017-10-29 15:12 | XMS REPORT | Continuity of Care Document ---
:1975 Author Organization [facility] Care Team Providers Name Role Phone MD Meyl, Gerson Unavailable Unavailable Insurance Providers Payer name Policy type / Coverage Policy ID Covered libertarian ID Policy Olivia type [place] Encounters Encounter Performer Location Date Office Visit Gerson Boone MD [facility] [place] [facility] Allergies, Adverse Reactions, Alerts Type Substance Reaction Status Drug allergy PENICILLIN rash Active Drug allergy LISINOPRIL cough Active Problems Problem Effective Dates Problem Status MIGRAINE HEADACHE Inactive MIGRAINE - UNSPECIFIED WITHOUT MENTION OF INTRACTABLE Sep 26, 2013 Active ROUTINE GENERAL MEDICAL EXAMINATION AT [facility] Sep 26, 2013 Inactive FACILITY [...] 2014 Active ROUTINE GENERAL MEDICAL EXAMINATION AT [facility] Sep 20, 2014 Active FACILITY [...] Sep 20, 2014 Active QSYMIA 7.5-46 MG [id number] 1 cap q AM for appetite Sep 20, 2014 Active suppression. QSYMIA 7.5-46 MG [id number] 1 cap qAM for appetite Sep 20, 2014 Active suppresion. OMEPRAZOLE 40 MG CPDR 1 tab QD for reflux. Sep 20, 2014 Active Vital Signs Date Description Test [...] blood pressure, diastolic, sitting, left arm BP VAELRY SIT L 96 mm Hg Nov 29, [...] 2013Sep 26, platelet count PLATELETS 234 K/CMM [phone] /mm3 Sep 26, hemoglobin, blood HGB 13.6 g/dL 12.0-16.0 2013Sep 26, hematocrit, blood HCT 42.3 % 36.0-48.0 2013Sep 26, platelet count PLATELETS 234 K/CMM 230-693 5976 /mm3 Oct 31, hemoglobin, blood HGB 13.4 g/dL 12.0-16.0 2013Oct 31, hematocrit, blood HCT 39.6 % 36.0-48.0 2013Oct 31, platelet count PLATELETS 251 K/CMM 087-583 2649 /mm3 Sep 26, urine color UA COLOR [...] Sep 26, sodium, serum SODIUM 140 MEQ/L [phone] mmol/L Sep 26, potassium, serum POTASSIUM 3.9 [...] Sep 26, sodium, serum SODIUM 140 MEQ/L [phone] mmol/L Sep 26, potassium, serum POTASSIUM 3.9 [...] Oct 31, sodium, serum SODIUM 140 MEQ/L 476-296 7821 mmol/L Oct 31, potassium, serum POTASSIUM 3.7 [...]
--- OUTSIDE RECORDS SUMMARY | 2017-10-29 15:12 | XMS REPORT | Continuity of Care Document ---
:1975 Author Organization [facility] Care Team Providers Name Role Phone MD Mely, Gerson Unavailable Unavailable Insurance Providers Payer name Policy type / Coverage Policy ID Covered constitution party ID Policy Olivia type [place]) [place] Encounters Encounter Performer Location Date Office Visit Gerson Boone MD [facility] [address] Allergies, Adverse Reactions, Alerts Type Substance Reaction Status Drug allergy PENICILLIN rash Active Drug allergy LISINOPRIL cough Active Problems Problem Effective Dates Problem Status MIGRAINE HEADACHE Inactive MIGRAINE - UNSPECIFIED WITHOUT MENTION OF INTRACTABLE Sep 26, 2013 Active ROUTINE GENERAL MEDICAL EXAMINATION AT [facility] Sep 26, 2013 Inactive FACILITY ELEVATED [...] Inactive ROUTINE GENERAL MEDICAL EXAMINATION AT [facility] Sep 20, 2014 Inactive FACILITY DYSPEPSIA AND [...] Sep 20, 2014 Active QSYMIA 3.75-23 MG [id number] 1 tab po once daily x14 days Oct 13, 2014 Inactive MACRODANTIN 100 MG CAPS 1 cap q12h with food. Oct 31, 2014 Inactive FLUCONAZOLE 150 MG TABS 1 tab QD for yeast infection Sep 21, 2014 Inactive HYDROCHLOROTHIAZIDE 25 MG TABS 1 tab q AM Sep 20, 2014 Inactive QSYMIA 7.5-46 MG [id number] 1 cap qAM for appetite Sep 20, [...] 2013Sep 26, platelet count PLATELETS 234 K/CMM [phone] /mm3 Sep 26, hemoglobin, blood HGB 13.6 g/dL 12.0-16.0 2013Sep 26, hematocrit, blood HCT 42.3 % 36.0-48.0 2013Sep 26, platelet count PLATELETS 234 K/CMM 487-473 4035 /mm3 Oct 31, hemoglobin, blood HGB 13.4 g/dL 12.0-16.0 2013Oct 31, hematocrit, blood HCT 39.6 % 36.0-48.0 2013Oct 31, platelet count PLATELETS 251 K/CMM 187-243 7213 /mm3 Sep 20, hemoglobin, blood HGB 13.8 g/dL 12.0-16.0 2014Sep 20, hematocrit, blood HCT 42.7 % 36.0-48.0 2014Sep 20, platelet count PLATELETS 256 K/CMM 194-074 7972 /mm3 Sep 26, urine color UA COLOR [...] Sep 26, sodium, serum SODIUM 140 MEQ/L [phone] mmol/L Sep 26, potassium, serum POTASSIUM 3.9 [...] Sep 26, sodium, serum SODIUM 140 MEQ/L 308-527 7866 mmol/L Sep 26, potassium, serum POTASSIUM 3.9 [...] Oct 31, sodium, serum SODIUM 140 MEQ/L 529-023 5003 mmol/L Oct 31, potassium, serum POTASSIUM 3.7 [...] Sep 20, sodium, serum SODIUM 142 MEQ/L [phone] mmol/L Sep 20, potassium, serum POTASSIUM 4.4 [...]
--- NOTE | 2017-10-29 15:55 | EDPHYS ---
Physician Documentation [facility] Name: Yessica Miranda Age: 42 yrs Sex: Female : 1975 Arrival Date: 10/29/2017 Time: 15:09 Bed 14 Private MD: out of town, doctor ED Physician Wolfgang Joshua HPI: 10/29 15:33 This 42 yrs old Female presents to ER via Ambulatory with complaints of Ankle jr8 Injury. 15:33 The patient presents with pain, tenderness. The complaints affect the left ankle. jr8 Onset: The symptoms/episode began/occurred gradually, 3 day(s) ago. Context: The problem was sustained at an unknown location. Associated signs and symptoms: The patient has no apparent associated signs or symptoms. Modifying factors: The symptoms are alleviated by elevation of extremity, sitting, the symptoms are aggravated by weight bearing. Severity of symptoms: At their worst the symptoms were moderate. The patient has not experienced similar symptoms in the past. The patient has not recently seen a physician. Denies trauma to extremity. Stated that it all of a sudden started to hurt. Has been moving furniture but cannot recall anything happening to ankle. . 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 - Social history:: Smoking status: Patient/guardian denies using tobacco, Patient uses alcohol. - Ebola Screening: : Patient negative for fever greater than or equal to 101.5 degrees Fahrenheit, and additional compatible Ebola Virus Disease symptoms Patient denies exposure to infectious person Patient denies travel to an Ebola-affected area in the 21 days before illness onset. ROS: 15:33 Eyes: Negative for injury, pain, redness, and discharge, ENT: Negative for injury, jr8 pain, and discharge, Neck: Negative for injury, pain, and swelling, Cardiovascular: Negative for chest pain, palpitations, and edema, Respiratory: Negative for shortness of breath, cough, wheezing, and pleuritic chest pain, Abdomen/GI: Negative for abdominal pain, nausea, vomiting, diarrhea, and constipation, Back: Negative for injury and pain, Skin: Negative for injury, rash, and discoloration, Neuro: Negative for headache, weakness, numbness, tingling, and seizure. 15:33 MS/extremity: Positive for decreased range of motion, pain, tenderness, of the left ankle. Exam: 15:33 Cardiovascular: Regular rate and rhythm with a normal S1 and S2. No gallops, murmurs, jr8 or rubs. Normal PMI, no JVD. No pulse deficits. Respiratory: Lungs have equal breath sounds bilaterally, clear to auscultation and percussion. No rales, rhonchi or wheezes noted. No increased work of breathing, no retractions or nasal flaring. Skin: Warm, dry with normal turgor. Normal color with no rashes, no lesions, and no evidence of cellulitis. Neuro: Awake and alert, GCS 15, oriented to person, place, time, and situation. Cranial nerves II-XII grossly intact. Motor strength 5/5 in all extremities. Sensory grossly intact. Cerebellar exam normal. Normal gait. 15:33 Musculoskeletal/extremity: Extremities: grossly normal except: noted in the left ankle: pain, tenderness, anterior ankle, ROM: intact in all extremities, full active range of motion, full passive range of motion, Circulation is intact in all extremities. Sensation intact. Vital Signs: 15:20 BP 133 / 83; Pulse 92; Resp 18; Temp 98.1(TE); Pulse Ox 99% on R/A; Weight 102.06 kg; hj Height 5 ft. 5 in. (165.10 cm); Pain 4/10; 15:20 Body Mass Index 37.44 (102.06 kg, 165.10 cm) hj MDM: 15:23 Patient medically screened. jr8 15:53 Data reviewed: vital signs, nurses notes, radiologic studies, plain films, and as a jr8 result, I will discharge patient. Data interpreted: Pulse oximetry: on room air is 99 %. Interpretation: normal. Counseling: I had a detailed discussion with the patient and/or guardian regarding: the historical points, exam findings, and any diagnostic results supporting the discharge/admit diagnosis, radiology results, the need for outpatient follow up, a orthopedic surgeon, to return to the emergency department if symptoms worsen or persist or if there are any questions or concerns that arise at home. ED course: Recommended staying in boot for 2 weeks. Will put on NSAID and pain medicine. If not better after that to f/u with ortho . 10/29 15:57 Order name: Urine Dipstick--Ancillary (enter results) 10/29 15:57 Order name: Urine --Ancillary (enter results) 10/29 15:22 Order name: XRAY Ankle LEFT 3 view; Complete Time: 16:08 hj Administered Medications: No medications were administered Disposition: 17:03 Co-signature as Attending Physician, Wolfgang Joshua MD I agree with the assessment and kdr plan of care. Disposition: 10/29/17 15:55 Discharged to Home. Impression: Pain in left ankle and joints of left foot. - Condition is Stable. - Discharge Instructions: Joint Pain, Ankle Pain. - Prescriptions for Mobic 7.5 mg Oral Tablet - take 1 tablet by ORAL route once daily take with food; 20 tablet. Tylenol- Codeine #3 300-30 mg Oral Tablet - take 2 tablet by ORAL route every 6 hours As needed; 30 tablet. - Medication Reconciliation Form, Thank You Letter, Antibiotic Education, Prescription Opioid Use form. - Follow up: Kavin Carpenter MD; When: 10 - 14 days; Reason: Recheck today's complaints, Continuance of care, Re-evaluation by your physician. - Problem is new. - Symptoms have improved. Signatures: Dispatcher [employer] EDLA Wolfgang Joshua MD MD kdr Smirch, Shelby, RN RN Sravan Nash PA PA jr8 Jed Lemus RN RAY Corrections: (The following items were deleted from the chart) 16:14 15:55 10/29/2017 15:55 Discharged to Home. Impression: Pain in left ankle and joints of ss left foot. Condition is Stable. Forms are Medication Reconciliation Form, Thank You Letter, Antibiotic Education, Prescription Opioid Use. Follow up: Kavin Carpenter; When: 10 - 14 days; Reason: Recheck today's complaints, Continuance of care, Re-evaluation by your physician. Problem is new. Symptoms have improved. jr8
--- NOTE | 2017-10-29 15:55 | ER ---
Nurse's Notes [facility] Name: Yessica Miranda Age: 42 yrs Sex: Female : 1975 Arrival Date: 10/29/2017 Time: 15:09 Bed 14 Private MD: out of town, doctor Diagnosis: Pain in left ankle and joints of left foot Presentation: 10/29 15:16 Presenting complaint: Patient states: i cant walk with my L ankle without the air cast, hj denies trauma to the area, been moving a lot; denies tingling or numbness; pain is 3/10;. Transition of care: patient was not received from another setting of care. Onset of symptoms was October 29, 2017. Risk Assessment: Do you want to hurt yourself or someone else? Patient reports no desire to harm self or others. Initial Sepsis Screen: Does the patient meet any 2 criteria? No. Patient's initial sepsis screen is negative. Does the patient have a suspected source of infection? No. Patient's initial sepsis screen is negative. Care prior to arrival: None. 15:16 Method Of Arrival: Ambulatory 15:16 Acuity: TAYLOR 4 hj Triage Assessment: 15:19 General: Appears in no apparent distress. uncomfortable, Behavior is calm, cooperative, hj appropriate for age. Pain: Complains of pain in left lateral ankle, left Achilles, left medial ankle and anterior aspect of left ankle. Musculoskeletal: Reports pain in left lateral ankle, left Achilles, left medial ankle and anterior aspect of left ankle. 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 - Social history:: Smoking status: Patient/guardian denies using tobacco, Patient uses alcohol. - Ebola Screening: : Patient negative for fever greater than or equal to 101.5 degrees Fahrenheit, and additional compatible Ebola Virus Disease symptoms Patient denies exposure to infectious person Patient denies travel to an Ebola-affected area in the 21 days before illness onset. Screenin:19 Abuse screen: Denies threats or abuse. Denies injuries from another. Nutritional hj screening: No deficits noted. Tuberculosis screening: No symptoms or risk factors identified. Fall Risk None identified. Assessment: 15:40 General: Appears comfortable, Behavior is calm, cooperative. Pain: Complains of pain in aa5 left ankle Pain currently is 4 out of 10 on a pain scale. Pain began 2-3 days ago. Is continuous, Aggravated by weight bearing. Neuro: Level of Consciousness is awake, alert, obeys commands, Oriented to person, place, time, situation. Cardiovascular: No deficits noted. Respiratory: Airway is patent Respiratory effort is even, unlabored, Respiratory pattern is regular, symmetrical. GI: No signs and/or symptoms were reported involving the gastrointestinal system. : No signs and/or symptoms were reported regarding the genitourinary system. EENT: No signs and/or symptoms were reported regarding the EENT system. Derm: Skin is pink, warm \T\ dry. Musculoskeletal: mild swelling noted to left ankle. Vital Signs: 15:20 BP 133 / 83; Pulse 92; Resp 18; Temp 98.1(TE); Pulse Ox 99% on R/A; Weight 102.06 kg; hj Height 5 ft. 5 in. (165.10 cm); Pain 4/10; 15:20 Body Mass Index 37.44 (102.06 kg, 165.10 cm) hj ED Course: 15:09 Patient arrived in ED. mr 15:10 out of town, doctor is Private Physician. mr 15:17 Triage completed. hj 15:19 Arm band placed on right wrist. hj 15:19 Patient has correct armband on for positive identification. Placed in gown. Bed in low hj position. Call light in reach. Side rails up X 1. 15:23 Sravan Avila PA is PHCP. jr8 15:23 Wolfgang Joshua MD is Attending Physician. jr8 15:36 Carol Valle, RAY is Primary Nurse. aa5 15:53 No provider procedures requiring assistance completed. aa5 15:54 Kavin Carpenter MD is Referral Physician. jr8 15:57 X-ray completed. Portable x-ray completed in exam room. Patient tolerated procedure ml well. 15:58 XRAY Ankle LEFT 3 view In Process Unspecified. EDMS 16:13 Patient did not have IV access during this emergency room visit. ss Administered Medications: No medications were administered Outcome: 15:55 Discharge ordered by . troy 16:13 Discharged to home ambulatory. ss 16:13 Condition: good 16:13 Discharge instructions given to patient, family, Instructed on discharge instructions, follow up and referral plans. medication usage, Demonstrated understanding of instructions, follow-up care, medications, Prescriptions given X 2. 16:14 Patient left the ED. ss Signatures: Dispatcher [employer] EDNC Colin Marva Long, Radha Carol Junior, RN RN aa5 Katerin Ojeda RN RN Sravan Nash PA PA jr8 Jed Lemus, RN RN hj Corrections: (The following items were deleted from the chart) 15:21 15:20 Pulse 92bpm; Resp 18bpm; Pulse Ox 99% RA; Temp 98.1F Temporal; 102.06 kg; Height hj 5 ft. 5 in.; BMI: 37.4; Pain 4/10; hj
--- NOTE | 2017-10-29 16:05 | RAD REPORT ---
EXAM DESCRIPTION: RAD - Ankle Left 3 View - 10/29/2017 3:58 pm CLINICAL HISTORY: PAIN COMPARISON: No comparisons FINDINGS: No fracture or dislocation seen. Prominent plantar calcaneal spur.
[2017-10-29 16:26] VITALS: BP 133/83; TEMP 98.1; O2SAT 99
[2017-10-29 16:41] LABS: Urine Blood NEGATIVE (NEG); Urine Glucose NEGATIVE (NEG); Urine Protein NEGATIVE (NEG)
== END 2017-10-29 16:14 | disposition home or self-care (01) ==
LOC: ER 15:05
DX: M25.572 Pain in left ankle and joints of left foot (principal); I10 Essential (primary) hypertension; Z88.0 Allergy status to penicillin
CPT/HCPCS: 81003; 81025; 99283

== ENCOUNTER 2019-02-24 22:16 | Emergency (ER) | payer OTHER, SELFPAY ==
--- OUTSIDE RECORDS SUMMARY | 2019-02-24 22:19 | XMS REPORT ---
:1975 [facility] Address [address] [place] [address] [address] [place] [address] Care Team Providers Name Role Phone Unavailable Unavailable Unavailable Problems This patient has no known problems. Allergies, Adverse Reactions, Alerts This patient has no known allergies or adverse reactions. Medications This patient has no known medications. Results Test Description Test Time Test Comments Text Results Atomic Results Result Comments SCR MAMM BILATERAL CAD 2018-05-06 15:46:20 - SCR MAMM BILATERAL CAD DIGITAL DIGITALBILATERAL DIGITAL SCREENING MAMMOGRAM WITH CAD: 04/30/2018CLINICAL: Asymptomatic. Current mammographic images were evaluated by either a [employer] M-Vu or a [employer] ImageChecker CAD (computer aided detection system). No prior exams were available for comparison. There are scattered fibroglandular tissues in both breasts. No suspicious mass, architectural distortion, malignant type calcification, or lymph node abnormality detected. IMPRESSION: NEGATIVEThere is no mammographic evidence of malignancy. Resume annual screening mammography in one year. Shahnaz cochran/fabriciorad:05/06/2018 15:46:20 English Professor: Rissa Sprague MM, [facility] Mammographyletter sent: BIRADS 1-2 Normal Mammogram BI-RADS: 1 Negative
[2019-02-24 23:41] LABS: Urine Blood NEGATIVE (NEG); Urine Glucose NEGATIVE (NEG); Urine Protein NEGATIVE (NEG); Urine Specific Gravity >1.030 (1.005-1.030)
[2019-02-25] LABS: Absolute Lymphocytes (CBC) 3.7 K/uL (0.7-4.9); Basophils % 1.4 % (0-1.3); Lymphocytes % 41.3 % (15.3-44.8); MPV 9.4 fL (7.6-11.3); RBC Red Blood Cell Count 4.04 M/uL (3.86-4.86)
[2019-02-25 01:10] LABS: BUN Blood Urea Nitrogen 13 mg/dL (7-18); Bicarbonate 25 mmol/L (21-32); Glucose Level 88 mg/dL (74-106); Magnesium 2.2 mg/dL (1.8-2.4); NT PRO-BNP 28 pg/mL (<125); Potassium 3.6 mmol/L (3.5-5.1); Sodium Level 141 mmol/L (136-145); Troponin (Emerg Dept Use Only) < 0.02 ng/mL (0.0-0.045)
--- NOTE | 2019-02-25 01:16 | ER ---
Nurse's Notes [facility] Name: Yessica Miranda Age: 44 yrs Sex: Female : 1975 Arrival Date: 02/24/2019 Time: 22:21 Bed 20 Private MD: Diagnosis: Edema, unspecified;Adverse effect of calcium-channel blockers Presentation: 02/24 22:59 Presenting complaint: Patient states: that bilateral ankles are swollen on and off x 3 fc weeks. Worse today. She is also having lower back pain. Did state that she started a new bp medication Amlodipine approx 3 weeks ago but has called her PCP (Keegan) and was told that the medication was not the cause. Also had lab work done back then and all were negative. Transition of care: patient was not received from another setting of care. Onset of symptoms was February 04, 2019. Risk Assessment: Do you want to hurt yourself or someone else? Patient reports no desire to harm self or others. Initial Sepsis Screen:. Care prior to arrival: None. 22:59 Method Of Arrival: Ambulatory 22:59 Acuity: TAYLOR 3 23:30 Initial Sepsis Screen: Does the patient meet any 2 criteria? No. Patient's initial sepsis screen is negative. Does the patient have a suspected source of infection? No. Patient's initial sepsis screen is negative. 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 - Social history:: Smoking status: Patient/guardian denies using tobacco, Patient uses alcohol, occasionally. Patient/guardian denies using street drugs. - Ebola Screening: : Patient negative for fever greater than or equal to 101.5 degrees Fahrenheit, and additional compatible Ebola Virus Disease symptoms Patient denies exposure to infectious person Patient denies travel to an Ebola-affected area in the 21 days before illness onset. Screenin:30 Abuse screen: Denies threats or abuse. Denies injuries from another. Nutritional wh screening: No deficits noted. Tuberculosis screening: No symptoms or risk factors identified. Fall Risk None identified. Assessment: 23:20 General: Appears in no apparent distress. Behavior is calm, cooperative, appropriate wh for age. Pain: Denies pain. Neuro: Level of Consciousness is awake, alert, obeys commands, Oriented to person, place, time, situation, Appropriate for age. Cardiovascular: Heart tones S1 S2 Edema is 3+ to right forearm, left foot, left forearm and right foot Rhythm is regular. Respiratory: Airway is patent Respiratory effort is even, unlabored, Respiratory pattern is regular, symmetrical, Breath sounds are clear bilaterally. GI: Abdomen is flat, non-distended. : No signs and/or symptoms were reported regarding the genitourinary system. EENT: No signs and/or symptoms were reported regarding the EENT system. Derm: Skin is intact, is healthy with good turgor, Skin is pink, warm \T\ dry. normal. Musculoskeletal: Circulation, motion, and sensation intact. 02/25 00:15 Reassessment: Patient appears in no apparent distress at this time. No changes from previously documented assessment. Patient and/or family updated on plan of care and expected duration. Pain level reassessed. Patient is alert, oriented x 3, equal unlabored respirations, skin warm/dry/pink. 01:07 Reassessment: Patient appears in no apparent distress at this time. No changes from previously documented assessment. Patient and/or family updated on plan of care and expected duration. Pain level reassessed. Patient is alert, oriented x 3, equal unlabored respirations, skin warm/dry/pink. Patient denies pain at this time. Vital Signs: 02/24 23:05 BP 112 / 64; Pulse 89; Resp 18; Temp 98.2; Pulse Ox 100% ; Weight 102.06 kg; Height 5 fc ft. 5 in. (165.10 cm); Pain 4/10; 02/25 00:00 BP 116 / 83; Pulse 98; Resp 18; Pulse Ox 97% ; wh 01:09 BP 116 / 76; Pulse 89; Resp 18; Pulse Ox 97% ; 02/24 23:05 Body Mass Index 37.44 (102.06 kg, 165.10 cm) ED Course: 02/24 22:21 Patient arrived in ED. cl3 22:27 Justina Haider FNP-C is [facility]. kb 22:27 Dominic Chou MD is Attending Physician. kb 23:03 Triage completed. 23:05 Arm band placed on Patient placed in waiting room. 23:16 Jazmin Stubbs is Primary Nurse. 23:30 Patient has correct armband on for positive identification. Placed in gown. Bed in low wh position. Call light in reach. Side rails up X 1. parks and recreation manager on. Pulse ox on. NIBP on. 23:30 Inserted saline lock: 20 gauge in right antecubital area, using aseptic technique. Blood collected. By [employer] Medical Tech. 02/25 01:33 No provider procedures requiring assistance completed. IV discontinued, intact, bleeding controlled, No redness/swelling at site. 03:45 XRAY Chest (1 view) In Process Unspecified. EDMS Administered Medications: No medications were administered Outcome: 01:15 Discharge ordered by MD. 01:34 Discharged to home ambulatory. 01:34 Condition: stable 01:34 Discharge instructions given to patient, Instructed on discharge instructions, follow up and referral plans. medication usage, POC Edema Demonstrated understanding of instructions, follow-up care, medications, POC Prescriptions given X 1. 01:34 Patient left the ED. Signatures: Dispatcher [employer] EDMS Justina Haider FNP-C FNP-Ckb Chretien, Felicia, RN RN Jazmin Stubbs Shashank Adorno cl3 Corrections: (The following items were deleted from the chart) 02/24 23:09 23:05 Resp 18bpm; 102.06 kg; Height 5 ft. 5 in.; BMI: 37.4; Pain 4/10; [facility]
--- NOTE | 2019-02-25 01:17 | EDPHYS ---
Physician Documentation [facility] Name: Yessica Miranda Age: 44 yrs Sex: Female : 1975 Arrival Date: 02/24/2019 Time: 22:21 Bed 20 Private MD: KYAAR Physician Dominic Chou HPI: 02/25 00:51 This 44 yrs old Female presents to ER via Ambulatory with complaints of Ankle kb Swelling. 00:51 The patient has not experienced similar symptoms in the past. The patient has not kb recently seen a physician. 00:51 The patient presents with swelling. The complaints affect the right leg and left leg. kb Context: resulted from an unknown cause, the patient can fully bear weight, the patient is able to ambulate, Problem is a result from a previous injury: No. Onset: The symptoms/episode began/occurred 3 week(s) ago. Modifying factors: The symptoms are alleviated by nothing. the symptoms are aggravated by nothing. Associated signs and symptoms: Pertinent positives: swelling. Treatment prior to arrival includes: no previous treatment. Severity of symptoms: At their worst the symptoms were moderate, in the emergency department the symptoms are unchanged. Pt reports intermittent lower extremity swelling that started 3 weeks ago. Reports she started amlodipine for BP and swelling started after that. SUPERINTENDENT REFUSE DISPOSAL: 02/24 23:05 LMP N/A - control method Historical: - Allergies: 23:05 PENICILLINS; fc - Home Meds: 23:05 aspirin 81 mg Oral chew 1 tab once daily [Active]; amlodipine 10 mg tab 1 tab once fc daily [Active]; losartan 100 mg oral tab 1 tab once daily [Active]; Sprintec (28) 0.25-35 mg-mcg oral tab 1 tab once daily [Active]; - PMHx: 23:05 Hypertension; Left atrial enlargement per EKG; Cervical cancer; fc - PSHx: 23:05 Tubal ligation; cervical cancer surg; fc - Immunization history:: Last tetanus immunization: up to date Flu vaccine is up to date. - Social history:: Smoking status: Patient/guardian denies using tobacco, Patient uses alcohol, occasionally. Patient/guardian denies using street drugs. - Ebola Screening: : Patient negative for fever greater than or equal to 101.5 degrees Fahrenheit, and additional compatible Ebola Virus Disease symptoms Patient denies exposure to infectious person Patient denies travel to an Ebola-affected area in the 21 days before illness onset. ROS: 02/25 00:50 Constitutional: Negative for fever, chills, and weight loss, ENT: Negative for injury, kb pain, and discharge, Neck: Negative for injury, pain, and swelling, Cardiovascular: Negative for chest pain, palpitations. +lower extermity edema Respiratory: Negative for shortness of breath, cough, wheezing, and pleuritic chest pain, Abdomen/GI: Negative for abdominal pain, nausea, vomiting, diarrhea, and constipation, MS/Extremity: Negative for injury and deformity, Skin: Negative for injury, rash, and discoloration, Neuro: Negative for headache, weakness, numbness, tingling, and seizure. Exam: 00:50 Constitutional: This is a well developed, well nourished patient who is awake, alert, kb and in no acute distress. Head/Face: Normocephalic, atraumatic. ENT: Nares patent. No nasal discharge, no septal abnormalities noted. Tympanic membranes are normal and external auditory canals are clear. Oropharynx with no redness, swelling, or masses, exudates, or evidence of obstruction, uvula midline. Mucous membranes moist. Neck: Trachea midline, no thyromegaly or masses palpated, and no cervical lymphadenopathy. Supple, full range of motion without nuchal rigidity, or vertebral point tenderness. No Meningismus. Chest/axilla: Normal chest wall appearance and motion. Nontender with no deformity. No lesions are appreciated. Cardiovascular: Regular rate and rhythm with a normal S1 and S2. No gallops, murmurs, or rubs. Normal PMI, no JVD. No pulse deficits. Respiratory: Lungs have equal breath sounds bilaterally, clear to auscultation and percussion. No rales, rhonchi or wheezes noted. No increased work of breathing, no retractions or nasal flaring. Abdomen/GI: Soft, non-tender, with normal bowel sounds. No distension or tympany. No guarding or rebound. No evidence of tenderness throughout. Back: No spinal tenderness. No costovertebral tenderness. Full range of motion. Skin: Warm, dry with normal turgor. Normal color with no rashes, no lesions, and no evidence of cellulitis. MS/ Extremity: Pulses equal, no cyanosis. Neurovascular intact. Full, normal range of motion. Neuro: Awake and alert, GCS 15, oriented to person, place, time, and situation. Cranial nerves II-XII grossly intact. Motor strength 5/5 in all extremities. Sensory grossly intact. Cerebellar exam normal. Normal gait. 00:50 Cardiovascular: Edema: 2+ edema to level of left foot and right foot. Vital Signs: 02/24 23:05 BP 112 / 64; Pulse 89; Resp 18; Temp 98.2; Pulse Ox 100% ; Weight 102.06 kg; Height 5 fc ft. 5 in. (165.10 cm); Pain 4/10; 02/25 00:00 BP 116 / 83; Pulse 98; Resp 18; Pulse Ox 97% ; wh 01:09 BP 116 / 76; Pulse 89; Resp 18; Pulse Ox 97% ; wh 02/24 23:05 Body Mass Index 37.44 (102.06 kg, 165.10 cm) fc MDM: 02/24 23:15 Patient medically screened. kb 02/25 00:50 Data reviewed: vital signs, nurses notes. Data interpreted: Pulse oximetry: on room air kb is 100 %. Interpretation: normal. 01:14 Counseling: I had a detailed discussion with the patient and/or guardian regarding: the kb historical points, exam findings, and any diagnostic results supporting the discharge/admit diagnosis, lab results, radiology results, the need for outpatient follow up, a family practitioner, to return to the emergency department if symptoms worsen or persist or if there are any questions or concerns that arise at home. 02/24 23:29 Order name: Urine Dipstick--Ancillary (enter results) [facility] 02/24 23:29 Order name: Urine --Ancillary (enter results) [facility] 02/24 23:40 Order name: Basic Metabolic Panel; Complete Time: 01:14 kb 02/24 23:40 Order name: CBC with Diff; Complete Time: 00:14 kb 02/24 23:40 Order name: Magnesium; Complete Time: 01:14 kb 02/24 23:40 Order name: NT PRO-BNP; Complete Time: 01:14 kb 02/24 23:40 Order name: Troponin (emerg Dept Use Only); Complete Time: 01:14 kb 02/24 23:40 Order name: XRAY Chest (1 view) 02/24 23:40 Order name: EKG; Complete Time: 23:41 kb 02/24 23:40 Order name: Cardiac monitoring; Complete Time: 23:52 kb 02/24 23:40 Order name: EKG - Nurse/Tech; Complete Time: 23:52 kb 02/24 23:40 Order name: IV Saline Lock; Complete Time: 23:53 kb 02/24 23:40 Order name: Labs collected and sent; Complete Time: 23:53 kb 02/24 23:40 Order name: TSH; Complete Time: 01:14 kb 02/24 23:40 Order name: O2 Per Protocol; Complete Time: 23:53 kb 02/24 23:40 Order name: O2 Sat Monitoring; Complete Time: 23:53 kb Administered Medications: No medications were administered Disposition: 12:13 Co-signature as Attending Physician, Dominic Chou MD I agree with the assessment and mariama plan of care. Disposition: 02/25/19 01:15 Discharged to Home. Impression: Edema, unspecified, Adverse effect of calcium-channel blockers. - Condition is Stable. - Discharge Instructions: Edema, [id number]. - Prescriptions for Hydrochlorothiazide 12.5 mg Oral Tablet - take 1 tablet by ORAL route once daily; 30 tablet. - Medication Reconciliation Form, Thank You Letter, Antibiotic Education, Prescription Opioid Use form. - Follow up: Emergency Department; When: As needed; Reason: Worsening of condition. Follow up: Private Physician; When: 2 - 3 days; Reason: Recheck today's complaints, Continuance of care, Re-evaluation by your physician. - Notes: Stop Amlodipine Keep blood pressure log Follow up with PCP Signatures: Dispatcher [employer] Justina Santos, BRANDON GARCIA-Dominic Motta MD MD cha Chretien, Felicia, RAY RN Jazmin Montaño Corrections: (The following items were deleted from the chart) 01:34 01:15 02/25/2019 01:15 Discharged to Home. Impression: Edema, unspecified; Adverse wh effect of calcium-channel blockers. Condition is Stable. Forms are Medication Reconciliation Form, Thank You Letter, Antibiotic Education, Prescription Opioid Use. Follow up: Emergency Department; When: As needed; Reason: Worsening of condition. Follow up: Private Physician; When: 2 - 3 days; Reason: Recheck today's complaints, Continuance of care, Re-evaluation by your physician. kb
[2019-02-25 01:50] VITALS: BP 116/76
[2019-02-25 02:17] VITALS: TEMP 98; O2SAT 100
--- NOTE | 2019-02-25 08:23 | RAD REPORT ---
EXAM DESCRIPTION: Ahsan Single View02/25/2019 3:45 am CLINICAL HISTORY: Shortness of breath COMPARISON: 2017 FINDINGS: The lungs appear clear of acute infiltrate. The heart is normal size IMPRESSION: No acute abnormalities displayed
--- NOTE | 2019-02-25 11:57 | EKG ---
Test Date: 2019-02-24 Test Time: 23:48:02 Shoe Cutter: ANDRIA MEASUREMENT RESULTS: Intervals: Rate: 83 WA: 170 QRSD: 80 QT: 374 QTc: 439 Pierson: P: 68 WA: 170 QRS: 40 T: 64 INTERPRETIVE STATEMENTS: Normal sinus rhythm Normal ECG No previous ECG available for comparison Electronically Signed On 02-25-19 11:56:39 [employer] CUST[employer]ER SERVICE AGENT by Gee Mendoza
== END 2019-02-25 01:34 | disposition home or self-care (01) ==
LOC: ER 22:16
DX: R60.0 Localized edema (principal); T46.1X5A Adverse effect of calcium-channel blockers, initial encounter; I10 Essential (primary) hypertension; Z79.82 Long term (current) use of aspirin; Z88.0 Allergy status to penicillin; Z85.41 Personal history of malignant neoplasm of cervix uteri
CPT/HCPCS: 36415; 71045; 80048; 81003; 81025; 83735; 83880; 84443; 84484; 85025; 93005; 99284

== ENCOUNTER 2020-12-13 09:38 | Day surgery (SDC) | payer BC ==
[2020-12-06 14:39] LABS: Urine Appearance CLEAR (Clear); Urine Bilirubin NEGATIVE (Negative); Urine Blood NEGATIVE (Negative); Urine Color YELLOW (Yellow); Urine Glucose NEGATIVE (Negative); Urine Protein NEGATIVE (Negative); Urine Urobilinogen 0.2 mg/dL (0.2-1.0); Urine pH 6.5 (5.0-7.0)
[2020-12-06 14:45] LABS: Urine Microscopic Reflex NO UMIC
[2020-12-06 14:51] LABS: Absolute Lymphocytes (CBC) 2.8 K/uL (0.7-4.9); Basophils % 0.8 % (0-1.3); Lymphocytes % 38.5 % (15.3-44.8); MPV 8.8 fL (7.6-11.3); RBC Red Blood Cell Count 4.53 M/uL (3.86-4.86)
[2020-12-13 10:04] LABS: Specific Gravity 1.025 (1.005-1.030)
[2020-12-13] MEDS ORDERED: Ringers Lactate 1,000 ML IV ONE ×2 (10:27→13:59)
[2020-12-13] MEDS ORDERED: SCOPOLAMINE HYDROBROMIDE PATCH TD ONE (10:27)
[2020-12-13] MEDS ORDERED: CEFAZOLIN/SWI 2gm 2 GM/20 ML SYR ONE (10:37)
[2020-12-13] MEDS ORDERED: CEFAZOLIN/SWI 1gm 1 GM/10 ML SYR ONE (10:37)
[2020-12-13] MEDS ORDERED: BUPIVACAINE 0.25% PF 30 ML VIAL ONE (11:11)
[2020-12-13] MEDS ORDERED: ROCURONIUM 50 MG/5 ML VIAL IV ONE (11:17)
[2020-12-13] MEDS ORDERED: KETAMINE HCL 500 MG/5 ML VIAL ONE (11:17)
[2020-12-13] MEDS ORDERED: propofoL 200 MG/20 ML VIAL IV ONE (11:17)
[2020-12-13] MEDS ORDERED: NS 0.9% VIAL 10 ML ONE (11:18)
[2020-12-13] MEDS ORDERED: MIDAZOLAM HCL 2 MG/2 ML INJ ONE (11:18)
[2020-12-13] MEDS ORDERED: LIDOCAINE 2% MPF 5 ML VIAL ONE (11:18)
[2020-12-13] MEDS ORDERED: dexAMETHasone 10 MG/ML VIAL ONE (11:18)
[2020-12-13] MEDS ORDERED: FENTANYL CITR 250 MCG/5 ML ONE (11:18)
[2020-12-13] MEDS ORDERED: ONDANSETRON 4 MG/2 ML VIAL ONE (11:21)
[2020-12-13] MEDS ORDERED: CELECOXIB 100 MG CAPSULE ONE (11:59)
[2020-12-13] MEDS ORDERED: ACETAMINOPHEN 500 MG TAB ONE (11:59)
[2020-12-13] MEDS ORDERED: KETOROLAC 30 MG/ML INJ ONE (13:55)
[2020-12-13] MEDS ORDERED: HYDROCODONE/APAP 5/325 MG TAB PO PRN (14:30)
[2020-12-13] MEDS ORDERED: IBUPROFEN 200 MG TAB PO PRN (14:30)
[2020-12-13] MEDS ORDERED: MEPERIDINE HCL 25 MG/ML SYR IM PRN (14:30)
[2020-12-13] MEDS ORDERED: PROMETHAZINE INJ 25 MG/ML AMP IV PRN (14:30)
--- NOTE | 2020-12-13 14:38 | P.BOP ---
Preoperative diagnosis: AUB-O/A, Pelvic pain Postoperative diagnosis: same, endometriosis, Uterine prolapse Primary procedure: TLH BS, Endometriosis excision, USLS colpopexy cystoscopy Mammal Control Agent: Aggie Mosher Estimated blood loss: min Specimen: uterus bilateral tubes, endo: left lateral pelvic sidewall,RLQ ant abd wall Findings: Endometriosis, left lateral wall , RLQ peritoneal implants, C-2 Anesthesia: General Complications: None Drain(s): Nasogastric, Other Transferred to: Recovery Room Condition: Good
[2020-12-13] MEDS ORDERED: HYDROCODONE/APAP 5/325 MG TAB PO ONE ×2 (16:08→17:20)
[2020-12-13] MEDS ORDERED: HYDROCODONE/APAP 5/325 MG TAB ONE ×2 (16:31→17:36)
[2020-12-13 17:33] VITALS: BP 135/82; TEMP 97.8; O2SAT 98
--- NOTE | 2020-12-13 19:24 | OP ---
Date of Procedure: 12/13/2020 Surgeon: Nneka Gilbert MD Garnett Mechanic: Aggie Mcgraw. Preoperative Diagnosis: Menorrhagia and pelvic pain. Postoperative Diagnosis: Endometriosis and uterine prolapse. Procedures Performed: 1.Total laparoscopic hysterectomy, bilateral salpingectomy. 2.Endometriosis excision. 3.Uterosacral ligament suspension, colpopexy and cystoscopy. 4.Right ovariopexy. Anesthesia: General endotracheal. Estimated Blood Loss: Minimal. Specimens: Uterus, bilateral tubes, and left lateral pelvic sidewall endometriosis, right lower quad rant anterior abdominal wall endometriosis. Complications: No complications. Drains: No drains. Condition: Stable. Findings: Endometriosis present on the left lateral wall, right lower quadrant peritoneal implants. Appendix and gallbladder were unremarkable. Point C was -2. So uterine suspension with uterosacral colpopexy was performed. Procedure In Detail: After informed consent was verified, the patient was taken back to the OR, plac ed in supine fashion on the operating table after general anesthesia was given. She was placed in a dorsal lithotomy position using Andre stirrups. Arms were tucked by the side, positioning checked. SCDs started. Time-out was done. 3 g of Ancef was given preop and then the procedure was started. Abdomen, vulva, vagina, and perineum were prepped and draped in a sterile fashion. Sanches was placed to drain the bladder and attached to retrograde filling and a large VCare was introd uced into the uterus and fixed in place. This area was then draped. A 1 cm infraumbilical incision was made with a scalpel using the open laparoscopy technique. Fascia was incised, tagged with 0 Vicryl sutures on each side, and peritoneum was entered sharply. Once the Tatyana was introduced, site of entry was checked and was unremarkable. Adequate insufflation was ob tained. The patient's upper abdominal surfaces were closely inspected. There were no remarkable imp lants. There were no implants of endometriosis. No other remarkable findings. The patient was placed in Trendelenburg position and survey of the pelvic cavity was performed, and e ndometriosis implants were seen as dictated in the findings. Attention was first directed to the hysterectomy. The uterine prolapse was also noted on pelvic exam ination, so plan for uterosacral colpopexy was done. Ten suprapubic, five left and right lower quadrant ports were placed under direct vision. The colon was tagged with a 3-0 Monocryl using for ovariopexy. The mesosalpinx was opened up. Tube was dissected on the left side. Utero-ovarian ligament and roun d ligament were taken down. Broad ligament was dissected posteriorly to the uterosacral and anterior ly the bladder flap was raised. The broad ligament was skeletonized to expose the vessels and vessel s were cauterized with the bipolar. After going to the opposite side, the tube was removed from the mesosalpinx distally. The proximal p art, then utero-ovarian ligament, broad ligament taken down. The broad ligament connected for finish ing the bladder flap and posteriorly taken down to the uterosacral, distally on the posterior cuff. The vessels were skeletonized. Monopolar hook was used to create a bladder flap entering vesicovagin al space and the bladder was pushed down. Bipolar basket tip was used to take down the vessels and L igaSure used to cut the pedicle down. Cardinal ligaments were also taken down with the LigaSure. Th e similar dissection performed on the opposite side. Circumferential colpotomy was performed with th e help of a monopolar hook blade and the specimen was pulled out through the vagina. Thorough irriga tion and suction were performed. There was excellent hemostasis. 0 Vicryl sutures were placed at serjio th angles using simple stitches and 3 [id number] in the center to close the entire vaginal cuff . The uterosacral colpopexy was performed. Vaginal retraction was provided with the help of vaginal sp onge. Then, the uterosacral ligaments were identified and the distal 1/3 was traced next to it. So, at least 5 cm proximal to the insertion. This was picked up and 0 PDS suture was passed from lateral to medial and again lateral to medial, 2 sutures, pushing it through the rectovaginal se ptum the stitch was tied down suspending the apex back up to the uterosacral. Same thing done on the opposite side. Once this was done, there was no evidence of any peristalsis problem, dys tonic problems to the ureters. No evidence of any electrical or thermal injury was noted. Then, the endometriosis lesions were visualized in the left lateral wall. Some were medial to the ureter and some lateral. Peritoneum was opened up laterally outside the periphery of the implants and then a ci rcumferential incision was made in the peritoneum excising the implants lateral to the ureter. Then medially, the implants were excised the help of scissors and bipolar cautery and handed of f for permanent pathology. Then, attention was directed to the right lower quadrant implants and the y were circumscribed with the help of the monopolar, then excised from the base with the help of the bipolar and LigaSure. After all implants were removed, there was excellent hemostasis. Instrument, needle, and sponge counts were done. Thorough irrigation and suction were performed. Ovariopexy was performed with the help of 3-0 Monocryl stitching the left ovary to the base of the round ligament o n the right side. That was well suspended with the remnant of the round ligament and did not have to do this on the side. Next, the ovariopexy was performed in order to avoid any ovarian torsion as th ere was already a small cyst on the ovary, which did not warrant removal; however, with the absence o f the uterus, this may be at risk and so this was a preventive procedure that was done. The ports were pulled under direct vision. Trocars were removed. Bowel was desufflated. All the in cisions were injected with Marcaine. Fascia at the umbilicus closed with 0 Vicryl sutures tied to ea ch other and simple 0 Vicryl stitch at the suprapubic site, interrupted 4-0 Vicryl sutures on all the skin incisions. Vaginally, the vaginal retractor was removed. Sanches was removed and cystoscope placed. Strong jets of urine from both ureteric orifices were noted. No evidence of any injury to the bladder. The blad belgica was then drained. Instrument, needle, and sponge counts were correct at the end of the case. Kaur e patient was taken to the recovery room in a stable condition. Discussed all this with her aunt francis r the telephone. She has a 1-week followup appointment. NEY/PURVI Voice ID: [id number] Report ID: [id number]
[2020-12-14] MEDS ORDERED: PRENATAL VITS W CA FE FA PO SCH (09:00)
[2020-12-14] MEDS ORDERED: HOME MED 1 EA UNK (Biotin [Biotin] 1,000 MCG Tab.Chew) PO SCH (09:00)
[2020-12-14] MEDS ORDERED: HOME MED 1 EA UNK (Ascorbic Acid [Vitamin C] 500 MG Tab.Chew) PO SCH (09:00)
[2020-12-14] MEDS ORDERED: hydroCHLOROthiazide 12.5 MG CAP PO SCH (09:00)
[2020-12-14] MEDS ORDERED: METOPROLOL XL 100 MG TAB PO SCH (09:00)
== END 2020-12-13 18:08 | disposition home or self-care (01) ==
LOC: OR 09:38
PROVIDERS: ATTEND Obstetrics & Gynecology
PROC: 0UT74ZZ Resection of Bilateral Fallopian Tubes, Percutaneous Endoscopic Approach (ICD-10-PCS; 2020-12-13)
PROC: 0WBF4ZZ Excision of Abdominal Wall, Percutaneous Endoscopic Approach (ICD-10-PCS; 2020-12-13)
PROC: 0USG4ZZ Reposition Vagina, Percutaneous Endoscopic Approach (ICD-10-PCS; 2020-12-13)
PROC: 0UQ04ZZ Repair Right Ovary, Percutaneous Endoscopic Approach (ICD-10-PCS; 2020-12-13)
PROC: 0UT94ZZ Resection of Uterus, Percutaneous Endoscopic Approach (ICD-10-PCS; principal; 2020-12-13 12:00)
DX: N80.3 Endometriosis of pelvic peritoneum (principal); R10.2 Pelvic and perineal pain; Z20.822 Contact with and (suspected) exposure to COVID-19; N81.4 Uterovaginal prolapse, unspecified
CPT/HCPCS: 85025; 36415; 86900; 86850; 81025; 86901; 88305; 88307; 81003; 58571; 58662; 57425; 58999; U0003; J2704; J2250; J3010; J1100; J0690 ×2; J7120 ×2; J2405